=== PATIENT | male | born 1975 | race African-American/Black ===

== ENCOUNTER 2016-09-20 12:31 | Emergency (ER) | payer SELFPAY | END 2016-09-20 15:00 | disposition left against medical advice (07) | LOC: UCEAST 12:31 | DX: R21 Rash and other nonspecific skin eruption (principal) ==

== ENCOUNTER 2016-09-25 11:26 | Emergency (ER) | payer SELFPAY ==
[2016-09-25 13:48] VITALS: BP 148/95
--- NOTE | 2016-09-25 13:55 | UC ---
Headache HPI - HPI Summary HPI Summary: PT WITH H/O MIGRAINE TATUM WEEKLY SINCE CHILDHOOD. HAS BEEN TAKING EXCEDRIN REGULARLY SINCE THEN. FOR PAST 1 MONTH TATUM HAS NOT ABATED EVEN WITH EXCEDRIN. PT HAS A LOT OF STRESS AT HOME AND DOESN'T GET ENOUGH SLEEP OR DRINK ENOUGH WATER. TAKES EXCEDRIN MIGRAINE AT LEAST TWICE DAILY. NO FEVER, VISUAL DISTURBANCES, N/V , CHEST PAIN OR SOB. - History Of Current Complaint Chief Complaint: UCGeneralIllness Stated Complaint: HEADACHE Time Seen by Provider: 09/25/16 13:43 Hx Obtained From: Patient Onset/Duration: Gradual Onset, Lasting Weeks, Still Present Onset Of Symptoms: Gradual Currently Pain Is: Mild Pain Intensity: 2 Pain Scale Used: 0-10 Numeric Timing: Constant Character: Throbbing, Migraine Location of Headache: Diffuse Aggravating Factor: Position Change Allevating Factors: Nothing - Allergies/Home Medications Allergies/Adverse Reactions: Allergies Allergy/AdvReac Type Severity Reaction Status Date / Time Naproxen AdvReac Intermediate Vomiting Verified 07/15/16 21:06 PMH/Surg Hx/FS Hx/Imm Hx Endocrine History Of: Denies: Diabetes, Thyroid Disease Cardiovascular History Of: Denies: Cardiac Disorders, Hypertension Respiratory History Of: Denies: COPD, Asthma GI/ History Of: Denies: Ulcer Neurological History Of: Reports: Migraine - Surgical History Surgical History: None - Family History Known Family History: Positive: Cardiac Disease, Hypertension, Diabetes - Social History Alcohol Use: Occasionally Substance Use Type: Marijuana Smoking Status (MU): Former Smoker Type: Cigarettes Amount Used/How Often: quit 06/2014 Length of Time of Smoking/Using Tobacco: 20 years Have You Smoked in the Last Year: Yes Household Exposure Type: Cigarettes - Immunization History Most Recent Tetanus Shot: 2013 Review of Systems Constitutional: Negative Respiratory: Negative Cardiovascular: Negative Gastrointestinal: Negative Neurological: Headache All Other Systems Reviewed And Are Negative: Yes Physical Exam Triage Information Reviewed: Yes Appearance: Well-Appearing, No Pain Distress, Well-Nourished Vital Signs: Initial Vital Signs Temp 97.8 F 09/25/16 13:40 Pulse 58 09/25/16 13:40 Resp 18 09/25/16 13:40 BP 148/95 09/25/16 13:40 Pulse Ox 100 09/25/16 13:40 Vital Signs Reviewed: Yes Eyes: Positive: Conjunctiva Clear ENT: Positive: Hearing grossly normal, Pharynx normal, TMs normal Neck: Positive: Supple Respiratory Exam: Normal Cardiovascular Exam: Normal Abdomen Description: Positive: Soft Musculoskeletal: Positive: No Edema Neurological: Positive: Alert, Other: - CN II-XII GROSSLY INTACT BILATERALLY. NEG PRONATOR DRIFT. FINGER TO NOSE INTACT BILATERALLY. HEEL TO VALLES INTACT BILATERALLY. RAPID ALTERNATING MVMTS INTACT. 5/5 STRENGTH Psychological: Positive: Age Appropriate Behavior Skin: Negative: rashes Headache Course/Dx - Course Course Of Treatment: PT DECLINES CT SCAN TODAY. STOP EXCEDRIN. HYDRATE. GET ENOUGH REST. FOLLOW-UP NEURO. TO ER IF SX WORSEN - Differential Dx/Diagnosis Differential Diagnosis/HQI/PQRI: Migraine, Tension Headache, Other - MEDICATION OVERUSE HEADACHE Provider Diagnoses: HEADACHE Discharge - Discharge Plan Condition: Stable Disposition: HOME Patient Education Materials: Tension Headache (ED), General Headache (ED) Referrals: Angel Billings MD [Medical Doctor] - Additional Instructions: CONSIDER MEDICATION OVERUSE HEADACHE -Medication overuse headache (MOH) is a headache occurring on 15 or more days per month developing as a consequence of regular overuse of acute or symptomatic headache medication for more than 3 months. It usually, but not invariably, resolves after the overuse is stopped. -The precise mechanisms that lead to MOH are still uncertain. However, multiple factors seem to play a role. These include: Genetic predisposition Central sensitization of pain processing Biobehavioral factors -The prevalence of MOH in the general population is approximately 1 to 2 percent , and is higher in women than in men. Migraine is the most common primary headache disorder associated with MOH. -All acute symptomatic medications used to treat headaches have the potential for causing MOH. The risk for MOH appears to vary but is associated with: - opioids - butalbital-containing combination analgesics - aspirin/acetaminophen/caffeine combinations - triptans - nonsteroidal antiinflammatory drugs -The development of MOH is typically preceded by an episodic headache disorder, usually migraine or tension-type headache, that has been treated with frequent and excessive amounts of acute symptomatic medications. MOH often manifests as a headache that is present or develops upon awakening, and commonly occurs daily or nearly daily. -The diagnosis of MOH is based upon clinical impression. A history of analgesic use averaging more than two to three days per week in association with chronic daily headache is suggestive. STAY WELL HYDRATED. GET ENOUGH REST. TRY TO REDUCE STRESS. CALL THE NUMBER BELOW FOR ASSISTANCE IN ESTABLISHING WITH A PCP An additional resource available to assist in finding the appropriate physician for your health care needs is the [facility] ([facility]). You may contact them by calling [phone].
== END 2016-09-25 14:28 | disposition home or self-care (01) ==
LOC: UCEAST 11:26
DX: R51 Headache (principal); Z88.6 Allergy status to analgesic agent; Z87.891 Personal history of nicotine dependence
CPT/HCPCS: 99211; G0463

== ENCOUNTER 2017-01-26 18:00 | Emergency (ER) | payer SELFPAY ==
[2017-01-26 18:25] VITALS: BP 129/66
[2017-01-26] MEDS ORDERED: predniSONE TAB* 20 MG PO ONE (19:12)
[2017-01-26] MEDS ORDERED: Ketorolac INJ* 60 MG/2 ML VIAL IM ONE (19:12)
--- NOTE | 2017-01-27 13:17 | UC ---
Throat Pain/Nasal Rick HPI - HPI Summary HPI Summary: Patient is a 41yo who presents to with CC of sore throat x 2 days. Pain is sharp, achy and constant. He denies sick contacts or recent illness. Denies hx of strep throat. He is otherwise healthy and does not smoke tobacco, but smokes marijuana daily. He states intermittently he will have difficulty swallowing d/t pain and swelling. Cold items make the throat feel better. He has tried Motrin for the pain, which has not improved his symptoms. He takes no medications. - History of Current Complaint Chief Complaint: UCGeneralIllness Stated Complaint: SORE THROAT Time Seen by Provider: 01/26/17 18:07 Hx Obtained From: Patient Onset/Duration: Sudden Onset Severity: Moderate Pain Intensity: 6 Pain Scale Used: 0-10 Numeric Associated Signs & Symptoms: Positive: Dysphagia - Epiglottits Risk Factors Epiglottis Risk Factors: Negative - Allergies/Home Medications Allergies/Adverse Reactions: Allergies Allergy/AdvReac Type Severity Reaction Status Date / Time Naproxen AdvReac Intermediate Vomiting Verified 01/26/17 18:19 PMH/Surg Hx/FS Hx/Imm Hx Previously Healthy: Yes Endocrine History Of: Denies: Diabetes, Thyroid Disease Cardiovascular History Of: Denies: Cardiac Disorders, Hypertension Respiratory History Of: Denies: COPD, Asthma GI/ History Of: Denies: Ulcer Neurological History Of: Reports: Migraine - Surgical History Surgical History: None - Family History Known Family History: Positive: Cardiac Disease, Hypertension, Diabetes - Social History Occupation: Employed Full-time Lives: With Family Alcohol Use: Occasionally Substance Use Type: Marijuana Smoking Status (MU): Former Smoker Type: Cigarettes Amount Used/How Often: quit 06/2014 Length of Time of Smoking/Using Tobacco: 20 years Have You Smoked in the Last Year: Yes Household Exposure Type: Cigarettes - Immunization History Most Recent Tetanus Shot: 2013 Review of Systems Constitutional: Negative ENT: Sore Throat Respiratory: Negative Cardiovascular: Negative Genitourinary: Negative Neurovascular: Negative Neurological: Negative Psychological: Negative All Other Systems Reviewed And Are Negative: Yes Physical Exam Triage Information Reviewed: Yes Appearance: Well-Appearing, No Pain Distress, Well-Nourished Vital Signs: Initial Vital Signs Temp 98.7 F 01/26/17 18:22 Pulse 66 01/26/17 18:22 Resp 18 01/26/17 18:22 BP 129/66 01/26/17 18:22 Pulse Ox 96 01/26/17 18:22 Vital Signs Reviewed: Yes Eye Exam: Normal Eyes: Positive: Conjunctiva Clear ENT: Positive: Pharyngeal erythema Dental Exam: Normal Neck: Positive: Supple, Nontender, No Lymphadenopathy Respiratory Exam: Normal Respiratory: Positive: Chest non-tender Cardiovascular Exam: Normal Cardiovascular: Positive: RRR Musculoskeletal Exam: Normal Musculoskeletal: Positive: Strength Intact Neurological Exam: Normal Neurological: Positive: Alert Psychological: Positive: Normal Response To Family, Age Appropriate Behavior Skin Exam: Normal Throat Pain/Nasal Course/Dx - Course Course Of Treatment: Strep negative. Lung sounds are clear, otherwise physical exam OK. Uvula midline with no peritonsillar swelling. Pharyngeal erythema with no tonsillar swelling, no exudates. Hoarseness. Encouraged motrin for pain and to return if symptoms persist. Patient agrees and is OK for discharge. - Differential Dx/Diagnosis Differential Diagnosis/HQI/PQRI: Mononucleosis, Peritonsillar Abscess, Pharyngitis, URI Provider Diagnoses: Pharyngitis Discharge - Discharge Plan Condition: Stable Disposition: HOME Prescriptions: predniSONE TAB* [Deltasone TAB*] 50 mg PO DAILY #5 tab MDD 1 Patient Education Materials: Pharyngitis (ED) Forms: *Work Release Referrals: No Primary Care Phys,NOPCP [Primary Care Provider] - Additional Instructions: How can I manage my symptoms? Use lozenges, ice, soft foods, or popsicles to soothe your throat. Drink juice, milk shakes, or soup if your throat is too sore to eat solid food. Drinking liquids can also help prevent dehydration. Gargle with salt water. Mix teaspoon salt in a 1 cup of warm water and gargle. This may help reduce swelling in your throat. Do not smoke. Nicotine and other chemicals in cigarettes and cigars can cause lung damage and make your symptoms worse. Ask your healthcare provider for information if you currently smoke and need help to quit. E-cigarettes or smokeless tobacco still contain nicotine. Talk to your healthcare provider before you use these products. How do I prevent the spread of strep throat? Wash your hands often. Use soap and water. Wash your hands after you use the bathroom, change a child's diapers, or sneeze. Wash your hands before you prepare or eat food. Do not share food or drinks. Replace your toothbrush after you have taken antibiotics for 24 hours. Ibuprofen 600mg three times daily for inflammation Prednisone 50mg in the morning for 5 days. Benadryl at bedtime to help with inflammation and with swelling
== END 2017-01-26 19:02 | disposition home or self-care (01) ==
LOC: UCEAST 18:00
DX: J02.9 Acute pharyngitis, unspecified (principal); G43.909 Migraine, unspecified, not intractable, without status migrainosus; Z88.6 Allergy status to analgesic agent; Z87.891 Personal history of nicotine dependence
CPT/HCPCS: 87651; 96372; 99212; G0463; J1885; J7512

== ENCOUNTER 2017-03-11 20:47 | Emergency (ER) | payer SELFPAY ==
--- NOTE | 2017-03-11 21:52 | UC ---
General HPI - HPI Summary HPI Summary: The patient comes in today for: 1. Left leg pain, vomiting: Onset: One week ago. Palliative/provocative: Brace makes it better. Walking makes it hurt (lower femur) Quality: sharp Region: Lower left femur Severity: 02/22 Time: Constant. Associated symptoms: Leg pain/Event: He jumped out of a dumpster landing on his legs. He states that he had pain at that time and "couldn't walk." He did not see anyone for this. He treated it with Dione unknown dose two pills in AM and two pills in PM. He was taking ibuprofen at 200 mg/pill four times a day. He was taking this for a week. Vomiting: Onset: Last night Palliative/provocative: Sleep makes nausea better. Quality: Nausea. Region: GI Severity: 04/24 Time: Constant. Associated symptoms: Dizzy: "I feel out of body." Previous disease: He has taken Naproxen and had similar medication. Vomitin times. No blood, or coffee ground emesis. Last time he took the ibuprofen or aspirin. He has abdominal pain in the epigastric area, but he states that it does not radiate to his back. He has had problems with NSAIDS before where he had similar symptoms. During the history taking, he vomited non-bloody material. * - History of Current Complaint Chief Complaint: UCGI Stated Complaint: VOMITING Time Seen by Provider: 03/11/17 21:45 Hx Obtained From: Patient, Family/Malariologist - Allergy/Home Medications Allergies/Adverse Reactions: Allergies Allergy/AdvReac Type Severity Reaction Status Date / Time Naproxen AdvReac Intermediate Vomiting Verified 03/11/17 20:56 Home Medications: Home Medications diPHENhydraMINE PO* [Benadryl PO 25 MG TAB*] 25 mg PO BEDTIME 03/11/17 [History Confirmed 03/11/17] PMH/Surg Hx/FS Hx/Imm Hx Previously Healthy: Yes - Surgical History Surgical History: None - Family History Known Family History: Positive: Cardiac Disease, Hypertension, Diabetes - Social History Occupation: Employed Full-time Alcohol Use: Occasionally Substance Use Type: Marijuana Smoking Status (MU): Former Smoker Type: Cigarettes Amount Used/How Often: quit 06/2014 Length of Time of Smoking/Using Tobacco: 20 years Have You Smoked in the Last Year: Yes Household Exposure Type: Cigarettes - Immunization History Most Recent Tetanus Shot: 2013 Review of Systems Constitutional: Negative, Chills Skin: Negative Eyes: Negative ENT: Negative Respiratory: Negative Gastrointestinal: Vomiting All Other Systems Reviewed And Are Negative: Yes Physical Exam Triage Information Reviewed: Yes Completion Of Physical Exam Limited Due To: Other - When I was taking a history , he vomited clear to yellow fluid. NO blood or coffee ground emesis. Appearance: Well-Appearing, No Pain Distress, Well-Nourished Vital Signs: Initial Vital Signs Temp 100.6 F 03/11/17 20:52 Pulse 64 03/11/17 20:52 Resp 18 03/11/17 20:52 BP 138/83 03/11/17 20:52 Pulse Ox 100 03/11/17 20:52 Vital Signs Reviewed: Yes Eyes: Positive: Conjunctiva Clear. Negative: Discharge ENT: Positive: Hearing grossly normal. Negative: Pharyngeal erythema, Nasal congestion, Nasal drainage, TM bulging, TM dull, TM red, Tonsillar swelling, Tonsillar exudate Dental: Negative: Gross Decay/Caries @, Dental Fracture @ Neck: Positive: Supple, Nontender, No Lymphadenopathy Respiratory: Positive: Chest non-tender, Lungs clear, No respiratory distress, No accessory muscle use. Negative: Crackles, Wheezing Cardiovascular: Positive: RRR, Pulses Normal Abdomen Description: Positive: No Organomegaly, Soft. Negative: Nontender - There is tenderness, mostly in the epigastric area., Distended, Guarding, Peritoneal Signs Musculoskeletal: Positive: Strength Intact, ROM Intact, No Edema, Other: - He has no tenderness to palpation of the posterior capsule and the hamstring tendons. He has no effusion and he has full range of motion. There is no tenderness to traction deviation of the patella and none of the patella with tapping or of the tibial tuberosity. There is no tenderness to palpation of the anterior medial and lateral meniscus.. Negative: Strength Limited @ Neurological: Positive: Alert, Muscle Tone Normal Psychological: Positive: Age Appropriate Behavior. Negative: Consolable Skin: Negative: rashes, breakdown Diagnostics - Radiology No standard instances Xray Interpretation: No Acute Changes - IMPRESSION: Mild osteoarthritis without significant change. No traumatic injury evident. Radiology Interpretation Completed By: Radiologist Course/Dx - Course Course Of Treatment: Patient and female criminal defense attorney were told of the x-ray reading. After the GI cocktail, he states that he feels better (in terms of nausea and abdominal pain) and wants to go home. In terms of his abdominal pain : The patient was told that I don't know for sure what is causing his abdominal. pain. The patient was also told that there are many causes for abdomianl pain--. some which are benign and some which are life-threatening. Furthermore, it was. mentioned that the life-threatening causes of abdomianl pain can present with. minimal, atypical, or even no symptoms. Becasue of these facts and the fact. that we don't have here all the testing methods commonly used to assess abdominal. pain, and their timely resuts, my recommendation is for the patient to go to. the [facility] ([facility]) ER. He declines and will consider it if he does not do well with what we can offer him in terms of treatment. - Differential Dx - Multi-Symptom Provider Diagnoses: Viral vs NSAID gastroenteritis Discharge - Discharge Plan Condition: Stable Disposition: AGAINST MEDICAL ADVICE Patient Education Materials: Gastroenteritis (ED) Referrals: No Primary Care Phys,NOPCP [Primary Care Provider] - As Soon As Possible (If you are not going to the ER, please see your primary care provider as soon as you can to see how well you are doing. If you don't have a primary care provider, please contact the physician referral service. If you can't get in timely, please you may come back to see us until you can. If you get worse, please be seen sooner by us or the ER.) [facility] PHYSICIAN REFERRAL [Outside]
[2017-03-11] MEDS ORDERED: Ondansetron ODT TAB* 4 MG PO ONE (22:04)
[2017-03-11] MEDS ORDERED: Al Hydrox/Mg Hydrox/Simet LIQ* 30 ML UDC PO ONE (22:39)
[2017-03-11] MEDS ORDERED: Lidocaine 2% VISCOUS* 15 ML UDC PO ONE (22:39)
[2017-03-11] MEDS ORDERED: Ondansetron ODT TAB* 4 MG SL ONE (22:39)
--- NOTE | 2017-03-11 22:45 | RAD ---
Indication: Pain anterior just proximal to patella and distal femur following jumping injury. Comparison: January 04, 2015 Technique: LEFT knee: AP, tunnel, lateral, sunrise views. Report: Negative for effusion, fracture, or malalignment. Moderate medial and patellofemoral joint osteophytosis. No significant joint space narrowing which may be underestimated without weightbearing views. Unremarkable soft tissue contours. IMPRESSION: Mild osteoarthritis without significant change. No traumatic injury evident.
[2017-03-11] MEDS ORDERED: Famotidine TAB* 20 MG PO ONE (23:04)
[2017-03-11] MEDS ORDERED: Omeprazole CAP* 20 MG PO ONE (23:05)
[2017-03-11 23:29] VITALS: BP 148/86
== END 2017-03-11 23:20 | disposition left against medical advice (07) ==
LOC: UCEAST 20:47
DX: K52.9 Noninfective gastroenteritis and colitis, unspecified (principal); M79.662 Pain in left lower leg; Z87.891 Personal history of nicotine dependence
CPT/HCPCS: 99213; A9270-GY; G0463

== ENCOUNTER 2018-02-07 13:00 | Emergency (ER) | payer OTHER ==
[2018-02-07] MEDS ORDERED: NS 0.9% 1000 ML* 1,000 ML IV ONE ×2 (13:18→15:20)
[2018-02-07] MEDS ORDERED: Morphine VIAL* 4 MG/ML VIAL (1 ml vial) IV PRN (13:18)
[2018-02-07] MEDS ORDERED: Metoclopramide IV* 5 MG/ML 2 ML VIAL IV ONE (13:18)
[2018-02-07] MEDS ORDERED: Morphine VIAL* 4 MG/ML VIAL (1 ml vial) IV ONE ×2 (13:28→13:29)
[2018-02-07 13:44] LABS: Hematocrit 45 % (42-52); Mean Corpuscular HGB Conc 33 g/dl (31-36); Mean Corpuscular Hemoglobin 29 pg (27-31); Mean Corpuscular Volume 87 fL (80-94); Mean Platelet Volume 8.4 um3 (7.4-10.4); Platelet Count 243 10^3/ul (150-450); Red Blood Count 5.23 10^6/ul (4.0-5.4); Red Cell Distribution Width 14 % (10.5-15); White Blood Count 6.9 10^3/ul (3.5-10.8)
[2018-02-07 13:51] LABS: INR 1.05 (0.77-1.02)
[2018-02-07 14:13] LABS: ABS Basophils 0.1 10^3/ul (0-0.2); ABS Eosinophils 0 10^3/ul (0-0.6); ABS Lymphocytes 1.1 10^3/ul (1.0-4.8); ABS Monocytes 0.3 10^3/ul (0-0.8); ABS Neutrophils 5.3 10^3/ul (1.5-7.7); ABS Nucleated RBC 0 10^3/ul; Eosinophil % 0.4 % (0-6); Lymphocyte % 16.4 % (25-47); Nucleated Red Blood Cells % 0.2
[2018-02-07] MEDS ORDERED: Iohexol 300* (CONTRAST) 10 ML SDV IV ONE (16:36)
--- NOTE | 2018-02-07 17:20 | RAD ---
CLINICAL HISTORY: Diverticulitis, left lower quadrant tenderness COMPARISON: None TECHNIQUE: Multiple contiguous axial CT scans were obtained of the abdomen and pelvis after the administration of intravenous contrast. Coronal and sagittal multiplanar reformations are submitted for review. Oral contrast was administered. Delayed images were obtained through the abdomen. FINDINGS: LUNG BASES: The lung bases are clear. LIVER: The liver is normal in shape, size, contour, and attenuation. BILE DUCTS: There is no intrahepatic or extrahepatic biliary dilatation. GALLBLADDER: The gallbladder is normal, without pericholecystic inflammatory change. PANCREAS: The pancreas is normal, without mass or ductal dilatation. SPLEEN: Normal in size and appearance. UPPER GI TRACT: Evaluation of the gastrointestinal tract is limited by incomplete gastric distention. The upper GI tract is unremarkable. SMALL BOWEL AND MESENTERY: The small bowel is normal in contour, course, and caliber. There is no obstruction or dilatation. COLON: The colon is normal in contour, course, caliber. There is no pericolonic inflammatory change. There is a tubular, vermiform, hollow viscus that is blind ending, and originates from the cecum, consistent with a normal appendix. There is no periappendiceal inflammatory change. ADRENALS: Normal bilaterally. KIDNEYS: The kidneys are normal in shape, size, contour, and axis. There is no hydronephrosis or nephrolithiasis. BLADDER: The bladder is incompletely distended but is grossly normal. PELVIC ORGANS: The prostate gland is normal. The seminal vesicles are symmetric. AORTA: The aorta is normal. IVC: Unremarkable LYMPH NODES: There is no lymphadenopathy by size criteria. ABDOMINAL WALL: There is no evidence for abdominal wall hernia. BONES AND SOFT TISSUES: Degenerative changes are noted at L5-S1 OTHER: None IMPRESSION: NO ACUTE CT PATHOLOGY OF THE VISUALIZED ABDOMEN OR PELVIS
--- NOTE | 2018-02-07 17:56 | ED ---
Douglas Najera Stephanie, scribed for Kamari Anderson on 02/07/18 at 1323 . Abdominal Pain/Male - HPI Summary HPI Summary: The pt is a 42 y/o M presenting to the ED with c/o abd pain that began on . The pt reports having a colonoscopy done on 02/04/18 and hemorrhoids banded. Symptoms include N/V since 02/05/18 which has worsened today. The pt has been taking Tylenol for his pain. - History of Current Complaint Chief Complaint: EDAbdPain Stated Complaint: VOMIITING Time Seen by Provider: 02/07/18 13:14 Hx Obtained From: Patient Onset/Duration: Sudden Onset, Lasting Days - 3, Still Present Timing: Constant Severity Currently: Severe Pain Intensity: 6 Pain Scale Used: 0-10 Numeric Location: Diffuse Radiates: No Aggravating Factor(s): Nothing Alleviating Factor(s): Nothing Associated Signs And Symptoms: Positive: Nausea, Vomiting - Allergies/Home Medications Allergies/Adverse Reactions: Allergies Allergy/AdvReac Type Severity Reaction Status Date / Time naproxen Allergy Vomiting Verified 02/07/18 13:02 Home Medications: Home Medications Acetaminophen [Tylenol Extra Strength] 500 mg PO Q4H PRN 02/07/18 [History Confirmed 02/07/18] PMH/Surg Hx/FS Hx/Imm Hx Endocrine/Hematology History: Denies: Hx Diabetes, Hx Thyroid Disease Cardiovascular History: Denies: Hx Hypertension Respiratory History: Denies: Hx Asthma, Hx Chronic Obstructive Pulmonary Disease (COPD) GI History: Denies: Hx Ulcer Musculoskeletal History: Denies: Hx Scoliosis Neurological History: Reports: Hx Migraine - Surgical History Surgery Procedure, Year, and Place: hemorrhoids banded- 02/04/2018 Infectious Disease History: No Infectious Disease History: Denies: Hx Clostridium Difficile, Hx Hepatitis, Hx Human Immunodeficiency Virus (HIV), Hx of Known/Suspected MRSA, Hx Shingles, Hx Tuberculosis, Hx Known/ Suspected VRE, Hx Known/Suspected VRSA, History Other Infectious Disease, Traveled Outside the [place] in Last 30 Days - Family History Known Family History: Positive: Cardiac Disease, Hypertension, Diabetes - Social History Occupation: Unemployed Lives: Alone Alcohol Use: Occasionally Hx Substance Use: Yes Substance Use Type: Reports: Marijuana Hx Tobacco Use: Yes Smoking Status (MU): Former Smoker Type: Cigarettes Amount Used/How Often: quit 06/2014 Length of Time of Smoking/Using Tobacco: 20 years Have You Smoked in the Last Year: Yes Review of Systems Negative: Fever Positive: Abdominal Pain, Vomiting, Nausea Negative: Slurred Speech All Other Systems Reviewed And Are Negative: Yes Physical Exam - Summary Physical Exam Summary: Appearance: Well appearing, no pain distress Skin: warm, dry, reflects adequate perfusion Head/face: normal Eyes: EOMI, RAINA ENT: normal Neck: supple, non-tender Respiratory: CTA, breath sounds present Cardiovascular: RRR, pulses symmetrical Abdomen: tenderness in R and L lower quadrants , soft Bowel: present Musculoskeletal: normal, strength/ROM intact Neuro: normal, sensory motor intact, A&Ox3 Triage Information Reviewed: Yes Vital Signs On Initial Exam: Initial Vitals Temp Pulse Resp BP Pulse Ox 99.0 F 78 24 150/91 100 02/07/18 13:02 02/07/18 13:02 02/07/18 13:02 02/07/18 13:02 02/07/18 13:02 Vital Signs Reviewed: Yes Diagnostics - Vital Signs Vital Signs Temp Pulse Resp BP Pulse Ox 02/07/18 13:11 10 02/07/18 13:02 99.0 F 78 24 150/91 100 - Laboratory Lab Results: Lab Results 02/07/18 02/07/18 02/07/18 Range/Units 13:34 13:34 13:35 WBC 6.9 (3.5-10.8) 10^3/ul RBC 5.23 (4.0-5.4) 10^6/ul Hgb 15.0 (14.0-18.0) g/dl Hct 45 (42-52) % MCV 87 (80-94) fL MCH 29 (27-31) pg MCHC 33 (31-36) g/dl RDW 14 (10.5-15) % Plt Count 243 (150-450) 10^3/ul MPV 8.4 (7.4-10.4) um3 Neut % (Auto) 76.7 (38-83) % Lymph % (Auto) 16.4 L (25-47) % Ector % (Auto) 5.0 (0-7) % Eos % (Auto) 0.4 (0-6) % Baso % (Auto) 1.5 (0-2) % Absolute Neuts (auto) 5.3 (1.5-7.7) 10^3/ul Absolute Lymphs (auto) 1.1 (1.0-4.8) 10^3/ul Absolute Monos (auto) 0.3 (0-0.8) 10^3/ul Absolute Eos (auto) 0 (0-0.6) 10^3/ul Absolute Basos (auto) 0.1 (0-0.2) 10^3/ul Absolute Nucleated RBC 0 10^3/ul Nucleated RBC % 0.2 Large Platelets Present INR (Anticoag Therapy) 1.05 H (0.77-1.02) APTT 27.3 (26.0-36.3) seconds Sodium 137 L (139-145) mmol/L Potassium 3.8 (3.5-5.0) mmol/L Chloride 106 (101-111) mmol/L Carbon Dioxide 19 L (22-32) mmol/L Anion Gap 12 H (2-11) mmol/L BUN 11 (6-24) mg/dL Creatinine 0.82 (0.67-1.17) mg/dL Est GFR ( Amer) 132.5 (>60) Est GFR (Non-Af Amer) 103.0 (>60) BUN/Creatinine Ratio 13.4 (8-20) Glucose 105 H (70-100) mg/dL Lactic Acid (0.5-2.0) mmol/L Calcium 9.9 (8.6-10.3) mg/dL Total Bilirubin 0.90 (0.2-1.0) mg/dL AST 30 (13-39) U/L ALT 23 (7-52) U/L Alkaline Phosphatase 58 (34-104) U/L Troponin I 0.00 (<0.04) ng/mL Total Protein 7.7 (6.4-8.9) g/dL Albumin 4.6 (3.2-5.2) g/dL Globulin 3.1 (2-4) g/dL Albumin/Globulin Ratio 1.5 (1-3) Lipase 27 (11.0-82.0) U/L // Range/Units 13:35 WBC (3.5-10.8) 10^3/ul RBC (4.0-5.4) 10^6/ul Hgb (14.0-18.0) g/dl Hct (42-52) % MCV (80-94) fL MCH (27-31) pg MCHC (31-36) g/dl RDW (10.5-15) % Plt Count (150-450) 10^3/ul MPV (7.4-10.4) um3 Neut % (Auto) (38-83) % Lymph % (Auto) (25-47) % Ector % (Auto) (0-7) % Eos % (Auto) (0-6) % Baso % (Auto) (0-2) % Absolute Neuts (auto) (1.5-7.7) 10^3/ul Absolute Lymphs (auto) (1.0-4.8) 10^3/ul Absolute Monos (auto) (0-0.8) 10^3/ul Absolute Eos (auto) (0-0.6) 10^3/ul Absolute Basos (auto) (0-0.2) 10^3/ul Absolute Nucleated RBC 10^3/ul Nucleated RBC % Large Platelets INR (Anticoag Therapy) (0.77-1.02) APTT (26.0-36.3) seconds Sodium (139-145) mmol/L Potassium (3.5-5.0) mmol/L Chloride (101-111) mmol/L Carbon Dioxide (22-32) mmol/L Anion Gap (2-11) mmol/L BUN (6-24) mg/dL Creatinine (0.67-1.17) mg/dL Est GFR ( Amer) (>60) Est GFR (Non-Af Amer) (>60) BUN/Creatinine Ratio (8-20) Glucose (70-100) mg/dL Lactic Acid 2.5 H* (0.5-2.0) mmol/L Calcium (8.6-10.3) mg/dL Total Bilirubin (0.2-1.0) mg/dL AST (13-39) U/L ALT (7-52) U/L Alkaline Phosphatase (34-104) U/L Troponin I (<0.04) ng/mL Total Protein (6.4-8.9) g/dL Albumin (3.2-5.2) g/dL Globulin (2-4) g/dL Albumin/Globulin Ratio (1-3) Lipase (11.0-82.0) U/L Result Diagrams: 02/07/18 13:35 02/07/18 13:34 Lab Statement: Any lab studies that have been ordered have been reviewed, and results considered in the medical decision making process. - CT Abdomen/Pelvis CT Interpretation: No Acute Changes CT Interpretation Completed By: Radiologist - NO ACUTE CT PATHOLOGY OF THE VISUALIZED ABDOMEN OR PELVIS. ED physician has reviewed this report. Abdominal Pain Fem Course/Dx - Course Course Of Treatment: The pt is a 42 y/o M presenting to the ED with c/o abd pain that began on 02/05/18. The pt reports having a colonoscopy done on 02/04/18 and hemorrhoids banded. - Diagnoses Differential Diagnosis/HQI/PQRI: Constipation, Diverticulitis, Pancreatitis, Renal Colic Provider Diagnoses: Abdominal pain, Status post hemorrhoidectomy, Hemorrhoids Discharge - Sign-Out/Discharge Documenting (check all that apply): Discharge/Admit/Transfer - Discharge - Discharge Plan Condition: Stable Disposition: HOME Prescriptions: Ibuprofen TAB* [Motrin TAB* 600 MG] 600 mg PO Q8H PRN #15 tab MDD 3 PRN Reason: Pain Ondansetron [Zofran Odt] 4 mg PO 15 #3 tab.rapdis Patient Education Materials: Hemorrhoids (ED), Abdominal Pain (ED), Hemorrhoidectomy (DC) Referrals: [facility] [Outside] Additional Instructions: Return to the ED for any new or worsening symptoms. - Billing Disposition and Condition Condition: STABLE Disposition: HOME The documentation as recorded by the Douglas cardenas Stephanie accurately reflects the service I personally performed and the decisions made by Justin rodriguez Emmanuel.
[2018-02-07 17:57] VITALS: BP 136/86
== END 2018-02-07 17:57 | disposition home or self-care (01) ==
LOC: ED 13:00
DX: R10.9 Unspecified abdominal pain (principal); K64.9 Unspecified hemorrhoids; Z98.890 Other specified postprocedural states; Z87.891 Personal history of nicotine dependence; Z88.6 Allergy status to analgesic agent
CPT/HCPCS: 36415; 74177; 80053; 83605; 83690; 84484; 85025; 85610; 85730; 96374; 96375; 99282; J2270; J2765; Q9967

== ENCOUNTER 2018-06-18 19:51 | Emergency (ER) | payer OTHER ==
[2018-06-18 20:09] VITALS: BP 135/96
--- NOTE | 2018-06-18 20:12 | UC ---
Knee Pain HPI - HPI Summary HPI Summary: 42 yo male presents with right knee pain. He tells me that around 1400 today he opened his 's care door and impacted his right knee. He has had pain since and has felt some crunching when he is walking - is concerned it may be broken. He has taken tylenol for pain which has helped. He is ambulatory without assistance. Denies numbness or tingling. - History of Current Complaint Chief Complaint: UCLowerExtremity Stated Complaint: KNEE INJURY Time Seen by Provider: 06/18/18 20:11 Hx Obtained From: Patient Severity Initially: Mild Severity Currently: Mild Pain Intensity: 4 Pain Scale Used: 0-10 Numeric - Allergies/Home Medications Allergies/Adverse Reactions: Allergies Allergy/AdvReac Type Severity Reaction Status Date / Time naproxen AdvReac Vomiting Verified 06/18/18 20:09 PMH/Surg Hx/FS Hx/Imm Hx - Additional Past Medical History Additional PMH: None - Surgical History Surgical History: Yes Surgery Procedure, Year, and Place: hemorrhoids banded- 02/04/2018 - Family History Known Family History: Positive: Cardiac Disease, Hypertension, Diabetes - Social History Occupation: Employed Full-time Lives: With Family Alcohol Use: Occasionally Substance Use Type: Marijuana Smoking Status (MU): Former Smoker Type: Cigarettes Amount Used/How Often: quit 06/2014 Length of Time of Smoking/Using Tobacco: 20 years Have You Smoked in the Last Year: Yes Household Exposure Type: Cigarettes - Immunization History Most Recent Tetanus Shot: 2013 Review of Systems Constitutional: Negative Skin: Negative Respiratory: Negative Cardiovascular: Negative Neurovascular: Negative Musculoskeletal: Other: - Right knee pain Neurological: Negative Psychological: Negative All Other Systems Reviewed And Are Negative: Yes Physical Exam - Summary Physical Exam Summary: GENERAL: NAD. WDWN. No pain distress. SKIN: No rashes, sores, lesions, or open wounds. CHEST: No accessory muscle use. Breathing comfortably and in no distress. CV: . Pulses intact popliteal, PT, and DP. Cap refill <2seconds MSK: RIGHT KNEE: Mild edema. Mild ecchymosis at superior patella. FROM active, pain worse with flexion. Strength 5/5. No patella apprehension. Negative Meera , A/P drawer, Shon, and varus/valgus stress. NEURO: Alert. Sensations intact and symmetric B/L LEs PSYCH: Age appropriate behavior. Triage Information Reviewed: Yes Vital Signs: Initial Vital Signs Temp 98 F 06/18/18 20:06 Pulse 68 06/18/18 20:06 Resp 16 06/18/18 20:06 BP 135/96 06/18/18 20:06 Pulse Ox 100 06/18/18 20:06 Vital Signs Reviewed: Yes Knee Pain Course/Dx - Course Course Of Treatment: XR: No radiologist reading after 1800, therefore wet read by myself is negative for fracture. Pt was offered crutches and GLENN wrap, but declined. Advised to RICE and take ibuprofen. F/u if symptoms worsen or persist. - Differential Dx/Diagnosis Provider Diagnoses: Right knee contusion Discharge - Sign-Out/Discharge Documenting (check all that apply): Patient Departure All imaging exams completed and their final reports reviewed: No - Discharge Plan Condition: Stable Disposition: HOME Patient Education Materials: Knee Pain (ED) Referrals: No Primary Care Phys,NOPCP [Primary Care Provider] - Additional Instructions: If you develop a fever, shortness of breath, chest pain, new or worsening symptoms - please call your PCP or go to the ED. Your blood pressure was high at todays visit. Please see your primary provider within 4 weeks for recheck and re-evaluation. 1) Rest, Ice, and elevate your knee as much as possible 2) May take ibuprofen 600mg every 6 hours as needed for pain 3) If your symptoms worsen or do not improve - please be rechecked - Billing Disposition and Condition Condition: STABLE Disposition: Home
--- NOTE | 2018-06-19 07:50 | RAD ---
HISTORY: Pain, right knee injury COMPARISONS: None VIEWS: 4 , Frontal, lateral, axial, and oblique views of the right knee FINDINGS: BONE DENSITY: Normal. BONES: There is no displaced fracture. JOINTS: There is mild tricompartment osteophyte formation. There is no suprapatellar joint effusion or lipohemarthrosis. ALIGNMENT: There is no dislocation. SOFT TISSUES: Unremarkable. OTHER FINDINGS: None. IMPRESSION: NO ACUTE OSSEOUS INJURY. IF SYMPTOMS PERSIST, RECOMMEND REPEAT IMAGING. R0
--- NOTE | 2018-06-19 08:33 | UC ---
- Progress Note Progress Note: Patient Name: JODI ZHU Medical Record#: [id number] Ordering Physician: Troy HARRELL Acct.#: [id number] : 1975 Age: 42 Sex: M Location: [facility] Exam Date: 06/18/182010 ADM Status: DEP ER Order Information: KNEE RIGHT 4+ VWS Accession Number: [id number] CPT: 95224 HISTORY: Pain, right knee injury COMPARISONS: None VIEWS: 4 , Frontal, lateral, axial, and oblique views of the right knee FINDINGS: BONE DENSITY: Normal. BONES: There is no displaced fracture. JOINTS: There is mild tricompartment osteophyte formation. There is no suprapatellar joint effusion or lipohemarthrosis. ALIGNMENT: There is no dislocation. SOFT TISSUES: Unremarkable. OTHER FINDINGS: None. IMPRESSION: NO ACUTE OSSEOUS INJURY. IF SYMPTOMS PERSIST, RECOMMEND REPEAT IMAGING. R0 <Electronically signed by Evan Russell MD in OV> 06/19/18746 Dictated By: Evan Russell MD Dictated Date/Time: 06/19/18746 Transcribed Date/Time: 06/19/18745 Copy to: CC:No Primary Care Phys,NOPCP ; Troy HARRELL; Jodi Gasca MD Imaging - [facility] Imaging - [facility] [address] [address] ph [phone] ph ([phone]) ph ([phone]) This report is only to be considered final once signed by the Provider(s) as displayed in the "<Electronically Signed by >" field (s). Absence of a signature indicates the report is in a draft status and still needs to be finalized. In the event this document was created by someone other than the signing Provider, the individual initiating the document will be listed in the "Entered by:" or "Dictated by:" fletcher. 1 of 1 Discharge - Sign-Out/Discharge Documenting (check all that apply): Post-Discharge Follow Up All imaging exams completed and their final reports reviewed: Yes - Discharge Plan Condition: Stable Disposition: HOME Patient Education Materials: Knee Pain (ED) Referrals: No Primary Care Phys,NOPCP [Primary Care Provider] - Additional Instructions: If you develop a fever, shortness of breath, chest pain, new or worsening symptoms - please call your PCP or go to the ED. Your blood pressure was high at todays visit. Please see your primary provider within 4 weeks for recheck and re-evaluation. 1) Rest, Ice, and elevate your knee as much as possible 2) May take ibuprofen 600mg every 6 hours as needed for pain 3) If your symptoms worsen or do not improve - please be rechecked - Billing Disposition and Condition Condition: STABLE Disposition: Home
== END 2018-06-18 21:02 | disposition home or self-care (01) ==
LOC: UCEAST 19:51
DX: S80.01XA Contusion of right knee, initial encounter (principal); Z88.6 Allergy status to analgesic agent; Z87.891 Personal history of nicotine dependence; W23.0XXA Caught, crushed, jammed, or pinched between moving objects, initial encounter; Y92.9 Unspecified place or not applicable
CPT/HCPCS: 99211; G0463

== ENCOUNTER 2018-08-31 10:57 | Emergency (ER) | payer OTHER ==
[2018-08-31 11:16] VITALS: BP 159/87
--- NOTE | 2018-08-31 11:43 | UC ---
Back Pain HPI - HPI Summary HPI Summary: 43-year-old male presents with one-week history of lower back pain. Denies injury. States pain is located in the left lumbar back. Radiates into the left buttocks and a half. States pain worsens with sitting, standing, weightbearing, and ambulation. States has had some occasional tingling in the left buttocks. Denies fever, chills, abdominal pain, nausea, vomiting, dysuria , frequency, urgency, hematuria, loss of bowel or bladder control. - History of Current Complaint Chief Complaint: UCBackPain Stated Complaint: LOWER BACK PAIN Time Seen by Provider: 08/31/18 11:33 Hx Obtained From: Patient Pain Intensity: 9 - Allergies/Home Medications Allergies/Adverse Reactions: Allergies Allergy/AdvReac Type Severity Reaction Status Date / Time naproxen AdvReac Vomiting Verified 08/31/18 11:14 PMH/Surg Hx/FS Hx/Imm Hx Previously Healthy: Yes - Denies significant PMH - Surgical History Surgical History: Yes Surgery Procedure, Year, and Place: hemorrhoids banded- 02/04/2018 - Family History Known Family History: Positive: Cardiac Disease, Hypertension, Diabetes - Social History Occupation: Employed Full-time Lives: With Family Alcohol Use: Occasionally Substance Use Type: Marijuana Substance Use Comment - Amount & Last Used: daily Smoking Status (MU): Former Smoker Type: Cigarettes Amount Used/How Often: quit 06/2014 Length of Time of Smoking/Using Tobacco: 20 years Have You Smoked in the Last Year: Yes Household Exposure Type: Cigarettes - Immunization History Most Recent Tetanus Shot: 2013 Review of Systems All Other Systems Reviewed And Are Negative: Yes Constitutional: Negative: Fever, Chills Gastrointestinal: Negative: Abdominal Pain, Vomiting, Diarrhea, Nausea Genitourinary: Negative: Dysuria, Hematuria, Frequency, Urgency Motor: Negative: Decreased ROM Neurovascular: Negative: Decreased Sensation Musculoskeletal: Positive: Other: - See HPI Neurological: Negative: Weakness, Paresthesia, Numbness Is Patient Immunocompromised?: No Physical Exam - Summary Physical Exam Summary: GENERAL APPEARANCE: Well developed, well nourished, alert and cooperative, and appears to be in no acute distress. NECK: Neck supple. CARDIAC: Normal S1 and S2. No S3, S4 or murmurs. Rhythm is regular. There is no peripheral edema, cyanosis or pallor. Extremities are warm and well perfused. Capillary refill is less than 2 seconds. LUNGS: Clear to auscultation and percussion without rales, rhonchi, wheezing or diminished breath sounds. ABDOMEN: Positive bowel sounds. Soft, nondistended, nontender. No guarding or rebound. No masses or hepatosplenomegally. MUSKULOSKELETAL: ROM intact to all extremities. No joint erythema or tenderness. Normal muscular development. Normal gait. BACK: Examination of the spine reveals normal gait and posture, no spinal deformity or tenderness. There is some soft tissue tenderness with palpation to the left lumbar back without spasm. EXTREMITIES: No edema. Peripheral pulses intact. NEUROLOGICAL: Strength and sensation symmetric and intact throughout. SKIN: Skin normal color, texture and turgor with no lesions or eruptions. Triage Information Reviewed: Yes Vital Signs: Initial Vital Signs Temp 97.8 F 08/31/18 11:12 Pulse 71 08/31/18 11:12 Resp 19 08/31/18 11:12 BP 159/87 08/31/18 11:12 Pulse Ox 99 08/31/18 11:12 Vital Signs Reviewed: Yes Back Pain Course/Dx - Course Course Of Treatment: 43-year-old male presents with one-week history of lower back pain. Denies injury. States pain is located in the left lumbar back. Radiates into the left buttocks and a half. States pain worsens with sitting, standing, weightbearing, and ambulation. States has had some occasional tingling in the left buttocks. Denies fever, chills, abdominal pain, nausea, vomiting, dysuria, frequency, urgency, hematuria, loss of bowel or bladder control. Afebrile. VSS. Exam revealed some left lumbar soft tissue tenderness but was otherwise unremarkable. Recommend conservative treatment with NSAIDs, muscle relaxant, low back exercises, and referral to PT. Warning symptoms were reviwed with patient. Verbalizes understanding and agrees with POC. - Differential Dx/Diagnosis Differential Diagnosis/HQI/PQRI: Cauda Equina Syndrome, Herniated Disc, Strain Provider Diagnosis: Acute low back pain, Elevated blood pressure reading Discharge - Sign-Out/Discharge Documenting (check all that apply): Patient Departure All imaging exams completed and their final reports reviewed: No Studies - Discharge Plan Condition: Stable Disposition: HOME Prescriptions: Cyclobenzaprine TAB* [Flexeril 10 MG TAB*] 10 mg PO TID PRN #15 tab PRN Reason: Spasms - Back Ibuprofen 600 mg PO Q8HR #30 tablet Patient Education Materials: Acute Low Back Pain (ED), Lower Back Exercises (ED ) Forms: *Work Release Referrals: Becka Parsons NP [Primary Care Provider] - 7 Days (If no improvement in symptoms.) Additional Instructions: Your history and exam are consistent for musculoskeletal low back pain. Start taking ibuprofen 600 mg 1 tab every 8 hours with food for next 7 days. After 7 days, you may take every 8 hours as needed for pain. Take cyclobenzaprine (Flexeril) 1 tab every 8 hours as needed for severe pain or spasm. This medication will cause drowsiness so do not take and drive or operate machinery. Use warm moist heat for 15-20 minutes at least four times a day to help relax the muscles. Once your pain begins to improve, start slowly introducing the back exercises that were provided to you as tolerated. I have also given you a prescription for physical therapy as some studies have shown that early physical therapy can help improve recovery time for low back pain. You will need to call to arrange an appointment. Follow up with your primary care provider in 7 days if symptoms do not improve. Your blood pressure was elevated in the clinic today. It is recommended that you have this rechecked within 4 weeks by your primary care provider. Seek immediate medical attention in the emergency room if you develop fever greater than 100.5 F, have severe abdominal pain, persistent vomiting, develop weakness, numbness, tingling in your lower extremities, you lose control of bowel or bladder, or have any worsening of symptoms. - Billing Disposition and Condition Condition: STABLE Disposition: Home
== END 2018-08-31 12:07 | disposition home or self-care (01) ==
LOC: UCCORT 10:57
DX: M54.5 Low back pain (principal); R03.0 Elevated blood-pressure reading, without diagnosis of hypertension; Z88.8 Allergy status to other drugs, medicaments and biological substances; Z87.891 Personal history of nicotine dependence
CPT/HCPCS: 99212; G0463

== ENCOUNTER 2018-09-18 08:08 | Emergency (ER) | payer OTHER ==
[2018-09-18 08:33] VITALS: BP 132/94
--- NOTE | 2018-09-18 09:02 | UC ---
Knee Pain HPI - HPI Summary HPI Summary: left knee pain x 1 day s/p injury to left knee, s/p twisted his left knee and fell on the his knee, hip the steps, + pain and swelling of the left knee, increase pain with walking, standing , better with rest and ice, - History of Current Complaint Chief Complaint: UCLowerExtremity Stated Complaint: LEFT LEG INJURY Time Seen by Provider: 09/18/18 08:34 Hx Obtained From: Patient Onset/Duration: Sudden Onset, Lasting Days - 1, Still Present Severity Initially: Moderate Severity Currently: Moderate Pain Intensity: 10 Character: Dull, Aching Aggravating Factor(s): Movement, Weight Bearing, Prolonged Standing, Stairs Alleviating Factor(s): Rest, Cold Associated Signs And Symptoms: Positive: Swelling, Weakness. Negative: Redness , Bruising, Fever, Numbness, Tingling Able to Bear Weight: Yes - Allergies/Home Medications Allergies/Adverse Reactions: Allergies Allergy/AdvReac Type Severity Reaction Status Date / Time naproxen AdvReac Vomiting Verified 09/18/18 08:21 Home Medications: Home Medications Ibuprofen 1,200 mg PO Q8HR PRN 09/18/18 [History] PMH/Surg Hx/FS Hx/Imm Hx Previously Healthy: Yes - Surgical History Surgical History: Yes Surgery Procedure, Year, and Place: hemorrhoids banded- 02/04/2018 - Family History Known Family History: Positive: Cardiac Disease, Hypertension, Diabetes - Social History Alcohol Use: Occasionally Substance Use Type: Marijuana Substance Use Comment - Amount & Last Used: daily Smoking Status (MU): Former Smoker Type: Cigarettes Amount Used/How Often: quit 06/2014 Length of Time of Smoking/Using Tobacco: 20 years Have You Smoked in the Last Year: Yes Household Exposure Type: Cigarettes - Immunization History Most Recent Tetanus Shot: 2013 Review of Systems All Other Systems Reviewed And Are Negative: Yes Constitutional: Positive: Negative Skin: Positive: Negative Eyes: Positive: Negative ENT: Positive: Negative Is Patient Immunocompromised?: No Physical Exam Triage Information Reviewed: Yes Appearance: Well-Appearing, No Pain Distress, Well-Nourished Vital Signs: Initial Vital Signs Temp 97.3 F 09/18/18 08:23 Pulse 62 09/18/18 08:23 Resp 16 09/18/18 08:23 BP 132/94 09/18/18 08:23 Pulse Ox 100 09/18/18 08:23 Vital Signs Reviewed: Yes Eye Exam: Normal Eyes: Positive: Conjunctiva Clear ENT: Positive: Normal ENT inspection, Hearing grossly normal, Pharynx normal Neck: Positive: Supple, Nontender Respiratory: Positive: Chest non-tender, Lungs clear, Normal breath sounds Cardiovascular: Positive: RRR, No Murmur, Pulses Normal Musculoskeletal: Positive: Other: - left knee : + swelling, + mild effusion , + tenderness medial knee, decrease ROM on flexion and extension , Diagnostics - Laboratory Diagnostic Studies Completed/Ordered: xray left knee : IMPRESSION: #. Negative for fracture. #. Small joint effusion. #. Mild to moderate osteoarthritis. Knee Pain Course/Dx - Differential Dx/Diagnosis Provider Diagnosis: Effusion, left knee Discharge - Sign-Out/Discharge Documenting (check all that apply): Patient Departure All imaging exams completed and their final reports reviewed: Yes - Discharge Plan Condition: Stable Disposition: HOME Patient Education Materials: Swollen Knee Joint (ED) Referrals: Becka Parsons NP [Primary Care Provider] - Andrea Olsen MD [Medical Doctor] - As Soon As Possible - Billing Disposition and Condition Condition: STABLE Disposition: Home
== END 2018-09-18 09:26 | disposition home or self-care (01) ==
LOC: UCCORT 08:08
DX: M25.462 Effusion, left knee (principal); Z87.891 Personal history of nicotine dependence
CPT/HCPCS: 99211; G0463

== ENCOUNTER 2019-06-28 12:26 | Emergency (ER) | payer OTHER ==
--- OUTSIDE RECORDS SUMMARY | 2019-06-28 12:41 | XMS REPORT | Continuity of Care Document ---
:1975 External Reference #:[id number] Author Name Peggy Flanagan MD Address [address] [place] [id number] Problems Active Problems Provider Date Arthralgia of the lower leg Kaden Tierney M.D. Onset: 01/09/2015 Arthralgia of the ankle and/or foot Kaden Tierney M.D. Onset: 01/09/2015 Closed fracture of upper end of fibula Kaden Tierney M.D. Onset: 2014 Sprain of ankle Kaden Tierney M.D. Onset: 01/09/2015 Social History Type Date Description Comments Sex Unknown ETOH Use Occasionally consumes alcohol Tobacco Use Start: Unknown Patient has never smoked Recreational Drug Use sporadically uses herbal supplements Smoking Status Reviewed: 06/01/19 Patient has never smoked Exercise Type/Frequency Exercises rarely Allergies, Adverse Reactions, Alerts Active Allergies Reaction Severity Comments Date Naproxen 01/09/2015 Inactive Allergies NKDA 01/09/2015 Medications Active Medications SIG Qnty Indications Ordering Provider Date Ibuprofen as needed Unknown 200mg Capsules Medications Administered in Office Medication SIG Qnty Indications Ordering Provider Date Celestone 3 mg and 3mg Andrea Olsen MD 09/18/2018 Injection Immunizations Description No Information Available Vital Signs Date Vital Result Comment 09/18/2018 10:06am Height 72 inches 6'0" Weight 205.00 lb BP Systolic Sitting 132 mmHg BP Diastolic Sitting 72 mmHg Respiratory Rate 16 /min Pain Level 9 when standing BMI (Body Mass Index) 27.8 kg/m2 01/09/2015 2:00pm Height 72 inches 6'0" Weight 200.00 lb Heart Rate 62 /min BP Systolic 136 mmHg BP Diastolic 82 mmHg Pain Level 6 BMI (Body Mass Index) 27.1 kg/m2 Results Description No Information Available Procedures Description No Information Available Medical Devices Description No Information Available Encounters Description No Information Available Assessments Date Code Description Provider 06/01/2019 M54.16 Radiculopathy, lumbar region Peggy Flanagan MD 06/01/2019 M54.12 Radiculopathy, cervical region Peggy Flanagan MD Plan of Treatment 06/01/2019 - Peggy Flanagan, MDM54.16 Radiculopathy, lumbar regionNew Xrays:MRI Lumbar Spine W/O, Ordered: 06/01/19MRI Cervical Spine Wo, Ordered: 06/01/19MRI Lumbar Spine W/O, Ordered: 06/01/19New Orders:NCV Nerve Conduction Study, Ordered: 06/01/19M54.12 Radiculopathy, cervical regionNew Xrays:MRI Cervical Spine Wo, Ordered: 06/01/19MRI Cervical Spine Wo, Ordered: 06/01/19MRI Lumbar Spine W/O, Ordered: 06/01/19New Orders:NCV Nerve Conduction Study, Ordered: Comments:The patient has been having diffuse bilateral upper and lower extremity weakness and tingling. He feels that he has a hard time controlling his legs and he has noticed progressive weakness in his arms. He has pain across his lumbar spine and tightness in his neck. He has had no improvement thus far with physical therapy. His x-rays today show degenerative disc disease of the both the cervicaland lumbar spines. I would like to obtain further imaging with a MRI of the cervical and lumbar spines. I would like to obtain electrodiagnostic studies to further evaluate the weakness in his armsand legs. He should continue in the physical therapy. He is to follow- up with me after the MRI has been performed.M54.16 Radiculopathy, lumbar regionNew Xrays:MRI Lumbar Spine W/O, Ordered: 06/01/19MRI Cervical Spine Wo, Ordered: 06/01/19MRI Lumbar Spine W/O, Ordered: 06/01/19New Orders:NCV Nerve Conduction Study, Ordered: 06/01/19M54.12 Radiculopathy, cervical regionNew Xrays:MRI Cervical Spine Wo, Ordered: 06/01/19MRI Cervical Spine Wo, Ordered: MRI Lumbar Spine W/O, Ordered: 06/01/19New Orders:NCV Nerve Conduction Study, Ordered: 06/01/19Comments:The patient has been having diffuse bilateral upper and lower extremity weakness and tingling. He feels that he has a hard time controlling his legs and he has noticed progressive weakness in his arms. He has pain across his lumbar spine and tightness in his neck. He has had no improvement thus far with physical therapy. His x-rays today show degenerative disc disease of the both the cervicaland lumbar spines. I would like to obtain further imaging with a MRI of the cervical and lumbar spines. I would like to obtain electrodiagnostic studies to further evaluate the weakness in his armsand legs. He should continue in the physical therapy. He is to follow-up with me after the MRI has been performed. Functional Status Description No Information Available Mental Status Description No Information Available Referrals Description No Information Available
--- OUTSIDE RECORDS SUMMARY | 2019-06-28 12:41 | XMS REPORT | Continuity of Care Document ---
:1975 External Reference #:[id number] Author Name Roberto Silverio MD Address [address] [place] [address] Care Team Providers Name Role Phone Deborah Bro NP - Family Care Team Information Cassandra Consultant Problems Active Problems Provider Date Diarrhea Roberto Silverio MD Onset: 04/23/2018 Helicobacter pylori Roberto Silverio MD Onset: 04/23/2018 Benign prostatic hypertrophy with outflow Lizzie Vidal M.D. Onset: 2017 obstruction Social History Type Date Description Comments Sex Unknown Smokeless Tobacco Never Used Smokeless Tobacco ETOH Use Occasionally consumes few times a month alcohol Tobacco Use Start: Unknown End: Patient is a former QUIT 1999 Unknown smoker Recreational Drug Use Marijuana Smoking Status Reviewed: 02/05/19 Patient is a former QUIT 1999 smoker Allergies, Adverse Reactions, Alerts Description No Known Drug Allergies Medications Active Medications SIG Qnty Indications Ordering Date Provider Nitroglycerin 0.125% 1 unit apply to 30gm K60.2 Roberto Silverio, 2018 Ointment affected area 0.125 Ointment three times a day as needed Hydrocortisone Acetate every night 24units K60.2 Roberto Silverio, 2018 25mg Suppository Excedrin Extra 1 tab bid prn Roberto Silverio, 01/15/2018 Strength Per PT [id number] Tablets Preparation H A/D prn Unknown 0.25-88.44% Suppository Ibuprofen 200 4 po 4 x a day Unknown 200mg per patient Tablets Immunizations Description No Information Available Vital Signs Date Vital Result Comment 05/31/2019 10:22am BP Systolic Sitting Left Arm 120 mmHg BP Diastolic Sitting Left Arm 84 mmHg Body Temperature 95.4 F Heart Rate 68 /min Respiratory Rate 16 /min Height 72 inches 6'0" Weight 204.00 lb BMI (Body Mass Index) 27.7 kg/m2 BSA (Body Surface Area) 2.15 m2 Scroggins body weight in kilograms 81 kg O2 % BldC Oximetry 96 % Ra 02/19/2019 9:18am BP Systolic Sitting Left Arm 144 mmHg BP Diastolic Sitting Left Arm 98 mmHg Body Temperature 97.2 F Heart Rate 67 /min Respiratory Rate 16 /min Height 72 inches 6'0" Weight 204.00 lb BMI (Body Mass Index) 27.7 kg/m2 BSA (Body Surface Area) 2.15 m2 Scroggins body weight in kilograms 81 kg O2 % BldC Oximetry 97 % Ra Results Description No Information Available Procedures Date Code Description Status 05/31/2019 75938 Anoscopy Completed 05/31/2019 00497 Hemorrhoidectomy, single ligature Completed 02/19/2019 68879 Measurement Post Voiding Residual Urine By Completed Ultrasound,Non-Imaging 02/19/2019 58330 complex uroflowmetry electronic Completed 02/04/2018 [id number] Colonoscopy Completed 08/25/2012 [id number] Colonoscopy Completed Medical Devices Description No Information Available Encounters Type Date Location Provider Dx Diagnosis Office Visit 05/31/2019 GI Roberto Silverio MD K64.2 Third degree 10:30a hemorrhoids K60.2 Anal fissure, unspecified K59.00 Constipation, unspecified Office Visit 02/19/2019 9:00a Urology Lizzie Vidal N40.1 Benign prostatic M.D. hyperplasia with lower urinary tract symp Assessments Date Code Description Provider 05/31/2019 K64.2 Third degree hemorrhoids Roberto Silverio MD 05/31/2019 K60.2 Anal fissure, unspecified Roberto Silverio MD 05/31/2019 K59.00 Constipation, unspecified Roberto Silverio MD 02/19/2019 N40.1 Benign prostatic hyperplasia with lower Lizzie Vidal M.D. urinary tract sympto Plan of Treatment Future Appointment(s):06/21/2019 9:00 am - Roberto Silverio MD at GI05/31/2019 - Roberto Silverio MDK64.2 Third degree hemorrhoidsComments:bandedprescription for hydrocortisone suppositoryFollow up:3-4 iccjhN30.2 Anal fissure, unspecifiedNew Medication:Nitroglycerin 0.125% Ointment 0.125 - 1 unit apply to affected area three times a day as neededHydrocortisone Acetate 25 mg - every nightComments:nitroglycerin rakjzC47.00 Constipation, unspecifiedComments: add fiber to the diet benefiber Functional Status Description No Information Available Mental Status Description No Information Available Referrals Description No Information Available
--- OUTSIDE RECORDS SUMMARY | 2019-06-28 12:41 | XMS REPORT | Continuity of Care Document ---
:1975 External Reference #:[id number] Author Name Roberto Silverio MD Address [address] [place] [address] Care Team Providers Name Role Phone Deborah Bro NP - Family Care Team Information V Belt Curer [phone] Problems Active Problems Provider Date Diarrhea Roberto [...] Medications SIG Qnty Indications Ordering Date Provider Colace 1 by mouth daily 60caps K64.2 Roberto Silverio, 06/21/2019 100mg Capsules and can take twice a day as needed Proctofoam HC apply to affected 20gm Roberto Silverio, 06/01/2019 1-1% Foam area twice a day Nitroglycerin 0.125% 1 unit apply to 30gm K60.2 Roberto Silverio, 2018 Ointment affected area 0.125 Ointment three times a day as needed Excedrin Extra 1 tab bid prn Roberto Silverio, 01/15/2018 Strength Per PT [id number] Tablets Preparation H proctoA/D prn Unknown 0.25-88.44% Suppository Ibuprofen 200 4 po 4 x a day Unknown 200mg per patient Tablets History Medications Anusol-HC one per rectum 24units Roberto Silverio, 06/01/2019 - 25mg each night 06/16/2019 Suppository Hydrocortisone Acetate every night 24units K60.2 Roberto Silverio, 2018 - 06/01/2019 25mg Suppository Immunizations Description No Information Available Vital Signs Date Vital Result Comment 06/21/2019 9:15am BP Systolic Sitting Left Arm 119 mmHg BP Diastolic Sitting Left Arm 80 mmHg Body Temperature 96.8 F Heart Rate 74 /min Respiratory Rate 16 /min Height 72 inches 6'0" Weight 198.00 lb BMI (Body Mass Index) 26.9 kg/m2 BSA (Body Surface Area) 2.12 m2 Paron body weight in kilograms 81 kg O2 % BldC Oximetry 100 % Ra Pain Level 3 rectal 05/31/2019 10:22am BP Systolic Sitting Left Arm 120 mmHg BP Diastolic Sitting Left Arm 84 mmHg Body Temperature 95.4 F Heart Rate 68 /min Respiratory Rate 16 /min Height 72 inches 6'0" Weight 204.00 lb BMI (Body Mass Index) 27.7 kg/m2 BSA (Body Surface Area) 2.15 m2 Paron body weight in kilograms 81 kg O2 % BldC Oximetry 96 % Ra Results Description No Information Available Procedures Date Code Description Status 05/31/2019 19439 Hemorrhoidectomy, single ligature Completed 02/19/2019 25216 Measurement Post Voiding Residual Urine By Completed Ultrasound,Non-Imaging 02/19/2019 02279 complex uroflowmetry electronic Completed 02/04/2018 [id number] Colonoscopy Completed 08/25/2012 [id number] Colonoscopy Completed Medical Devices Description No Information Available Encounters Type Date Location Provider Dx Diagnosis Office Visit 05/31/2019 GI Roberto Silverio MD K64.2 Third degree 10:30a hemorrhoids K60.2 Anal fissure, unspecified K59.00 Constipation, unspecified Office Visit 02/19/2019 9:00a Urology Lizzie Vidal, N40.1 Benign prostatic M.D. hyperplasia with lower urinary tract symp Assessments Date Code Description Provider 06/21/2019 K64.2 Third degree hemorrhoids Roberto Silverio MD 05/31/2019 K64.2 Third degree hemorrhoids Roberto Silverio MD 05/31/2019 K60.2 Anal fissure, unspecified Roberto Silverio MD 05/31/2019 K59.00 Constipation, unspecified Roberto Silverio MD 02/19/2019 N40.1 Benign prostatic hyperplasia with lower Young, Jose G Samuel urinary tract sympto Plan of Treatment 06/21/2019 - Roberto Silverio MDK64.2 Third degree hemorrhoidsNew Medication: Colace 100 mg - 1 by mouth daily and can take twice a day as neededComments: banding of right anterior columnadd colace to regimen. follow up 2 weeks Functional Status Description No Information Available Mental Status Description No Information Available Referrals Description No Information Available
[2019-06-28 12:49] VITALS: BP 134/84
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
== END 2019-06-28 13:09 | disposition home or self-care (01) ==
LOC: UCCORT 12:26
DX: T24.191A Burn of first degree of multiple sites of right lower limb, except ankle and foot, initial encounter (principal); X16.XXXA Contact with hot heating appliances, radiators and pipes, initial encounter; Y93.I9 Activity, other involving external motion; Y92.9 Unspecified place or not applicable
CPT/HCPCS: 99212; G0463

== ENCOUNTER 2019-07-01 09:03 | Emergency (ER) | payer OTHER ==
[2019-07-01 13:10] VITALS: BP 119/87
--- NOTE | 2019-07-01 13:18 | ED ---
Neck Pain - HPI Summary HPI Summary: This patient is a 43-year-old male with a history of myelomalacia from MRI presenting from Dr. Araiza's office. He states he went over there to schedule an appointment for an anterior cervical decompression surgery and they sent him here. He states he is unsure why he is here. He denies any pain to the neck at this time. He is denying any symptoms including numbness or tingling to the bilateral lower extremities. - History of Current Complaint Chief Complaint: EDBackInjuryPain Stated Complaint: BACK PAIN PER PT Time Seen by Provider: 07/01/19 09:45 Hx Obtained From: Patient Severity Initially: Mild Severity Currently: None Pain Intensity: 0 Pain Scale Used: 0-10 Numeric Aggravating Factors: Nothing Associated Signs & Symptoms: Positive: Negative - Allergies/Home Medications Allergies/Adverse Reactions: Allergies Allergy/AdvReac Type Severity Reaction Status Date / Time naproxen AdvReac Vomiting Verified 07/01/19 09:11 Home Medications: Home Medications tiZANidine TAB* [Zanaflex TAB*] 4 mg PO TID 07/01/19 [History Confirmed 07/01/19 ] PMH/Surg Hx/FS Hx/Imm Hx Previously Healthy: No Endocrine/Hematology History: Reports: Hx Diabetes - PRE DIABETIC ON MEDS Denies: Hx Thyroid Disease Cardiovascular History: Denies: Hx Hypertension, Hx Pacemaker/ICD Respiratory History: Denies: Hx Asthma, Hx Chronic Obstructive Pulmonary Disease (COPD) GI History: Denies: Hx Ulcer History: Denies: Hx Renal Disease Musculoskeletal History: Denies: Hx Scoliosis Sensory History: Denies: Hx Hearing Aid Neurological History: Reports: Hx Migraine Psychiatric History: Denies: Hx Panic Disorder - Surgical History Surgery Procedure, Year, and Place: hemorrhoids banded- 02/04/2018 - Immunization History Hx Pertussis Vaccination: No Immunizations Up to Date: Yes Infectious Disease History: No Infectious Disease History: Denies: Hx Clostridium Difficile, Hx Hepatitis, Hx Human Immunodeficiency Virus (HIV), Hx of Known/Suspected MRSA, Hx Shingles, Hx Tuberculosis, Hx Known/ Suspected VRE, Hx Known/Suspected VRSA, History Other Infectious Disease, Traveled Outside the [place] in Last 30 Days - Family History Known Family History: Positive: Cardiac Disease, Hypertension, Diabetes - Social History Occupation: Employed Full-time Lives: With Family Alcohol Use: Occasionally Hx Substance Use: Yes Substance Use Type: Reports: Marijuana Substance Use Comment - Amount & Last Used: daily Hx Tobacco Use: Yes Smoking Status (MU): Former Smoker Type: Cigarettes Amount Used/How Often: quit 06/2014 Length of Time of Smoking/Using Tobacco: 20 years Have You Smoked in the Last Year: Yes Review of Systems Negative: Fever, Chills, Fatigue, Skin Diaphoresis Negative: Palpitations, Chest Pain Negative: Shortness Of Breath, Cough Negative: Arthralgia, Myalgia Negative: Rash, Bruising All Other Systems Reviewed And Are Negative: Yes Physical Exam Triage Information Reviewed: Yes Vital Signs On Initial Exam: Initial Vitals Temp Pulse Resp BP Pulse Ox 97.5 F 73 16 152/95 100 07/01/19 09:05 07/01/19 09:05 07/01/19 09:05 07/01/19 09:05 07/01/19 09:05 Vital Signs Reviewed: Yes Appearance: Positive: No Pain Distress, Well-Nourished Skin: Positive: Skin Color Reflects Adequate Perfusion Head/Face: Positive: Normal Head/Face Inspection Respiratory/Lung Sounds: Positive: Breath Sounds Present Cardiovascular: Negative: Tachycardia Musculoskeletal: Positive: Normal, Strength/ROM Intact Neurological: Positive: Speech Normal Psychiatric: Positive: Affect/Mood Appropriate Procedures - Sedation Patient Received Moderate/Deep Sedation with Procedure: No Diagnostics - Vital Signs Vital Signs Temp Pulse Resp BP Pulse Ox 07/01/19 13:09 98 F 71 18 119/87 98 07/01/19 10:45 67 18 135/92 97 07/01/19 09:05 97.5 F 73 16 152/95 100 - Laboratory Lab Statement: Any lab studies that have been ordered have been reviewed, and results considered in the medical decision making process. Neck Course/Dx - Course Course Of Treatment: On arrival into the ED, Dr. Díaz office was called several times with no response. Spoke with Dr. Díaz who states he was going to be scheduled for surgery today, but pt left and returned to the office today. He is able to schedule surgery early next week and advised pt to return to office tmw to schedule this. Discussed with pt who agrees with this plan and prefers to go home and schedule surg tmw. Offered [place] J collar but pt refused stating he has no sxs and wld prefer just to go to office tmw. - Diagnoses Provider Diagnoses: Neck pain Discharge ED - Sign-Out/Discharge Documenting (check all that apply): Patient Departure - Discharge Plan Condition: Stable Disposition: HOME Referrals: Deborah Bro [Primary Care Provider] - Additional Instructions: As discussed, please follow up with Dr. Díaz office tomorrow to schedule your surgical appt - Billing Disposition and Condition Condition: STABLE Disposition: Home
== END 2019-07-01 13:09 | disposition home or self-care (01) ==
LOC: ED 09:03
DX: M54.2 Cervicalgia (principal); E11.9 Type 2 diabetes mellitus without complications; Z87.891 Personal history of nicotine dependence; Z79.84 Long term (current) use of oral hypoglycemic drugs; Z79.899 Other long term (current) drug therapy; Z88.8 Allergy status to other drugs, medicaments and biological substances
CPT/HCPCS: 99282

== ENCOUNTER 2019-07-22 05:45 | Inpatient (IN) | payer OTHER ==
[~2019-07-22 05:45] MED LIST: Buffered Lidocaine 1% SYRIN* 1 ML/SYRINGE INTRADERM ONE
--- OUTSIDE RECORDS SUMMARY | 2019-07-22 05:51 | XMS REPORT | Continuity of Care Document ---
:1975 External Reference #:[id number] Author Name Roberto Silverio MD Address [address] [place] [address] Care Team Providers Name Role Phone Deborah Bro NP - Family Care Team Information Prosthetics Lab Technician [phone] Problems Active Problems Provider Date Diarrhea Roberto [...] Proctofoam HC apply to affected 20gm Roberto Silvreio, 06/01/2019 1-1% Foam area twice a day Nitroglycerin 0.125% 1 unit apply to 30gm K60.2 Roberto Silverio, 2018 Ointment affected area 0.125 Ointment three times a day as needed Excedrin Extra 1 tab bid prn Roberto Silverio, 01/15/2018 Strength Per PT [phone] Tablets Preparation H proctoA/D prn Unknown 0.25-88.44% Suppository Ibuprofen 200 4 po 4 x a day Unknown 200mg per patient Tablets History Medications Anusol-HC one per rectum 24units Roberto Silverio, 06/01/2019 - 25mg each night 06/16/2019 Suppository Hydrocortisone Acetate every night 24units K60.2 Roberto Silverio, 2018 - 06/01/2019 25mg Suppository Immunizations Description No Information Available Vital Signs Date Vital Result Comment 07/12/2019 8:39am BP Systolic Sitting Left Arm 118 mmHg BP Diastolic Sitting Left Arm 81 mmHg Body Temperature 95.5 F Heart Rate 70 /min Respiratory Rate 24 /min Height 72 inches 6'0" Weight 195.25 lb BMI (Body Mass Index) 26.5 kg/m2 BSA (Body Surface Area) 2.11 m2 [employer] body weight in kilograms 81 kg O2 % BldC Oximetry 98 % Ra Pain Level 0 06/21/2019 9:15am BP Systolic Sitting Left Arm 119 mmHg BP Diastolic Sitting Left Arm 80 mmHg Body Temperature 96.8 F Heart Rate 74 /min Respiratory Rate 16 /min Height 72 inches 6'0" Weight 198.00 lb BMI (Body Mass Index) 26.9 kg/m2 BSA (Body Surface Area) 2.12 m2 [employer] body weight in kilograms 81 kg O2 % BldC Oximetry 100 % Ra Pain Level 3 rectal Results Description No Information Available Procedures Date Code Description Status 07/12/2019 02836 Anoscopy Completed 07/12/2019 08868 Hemorrhoidectomy, single ligature Completed 06/21/2019 76265 Hemorrhoidectomy, single ligature Completed 05/31/2019 96306 Hemorrhoidectomy, single ligature Completed 02/19/2019 00817 Measurement Post Voiding Residual Urine By Completed Ultrasound,Non-Imaging 02/19/2019 87784 complex uroflowmetry electronic Completed 02/04/2018 07949808 Colonoscopy Completed 08/25/2012 62441726 Colonoscopy Completed Medical Devices Description No Information Available Encounters Type Date Location Provider Dx Diagnosis Office Visit 06/21/2019 GI Roberto Silverio MD K64.2 Third degree 9:00a hemorrhoids Office Visit 05/31/2019 GI Roberto Silverio MD K64.2 Third degree 10:30a hemorrhoids K60.2 Anal fissure, unspecified K59.00 Constipation, unspecified Office Visit 02/19/2019 9:00a Urology Lizzie Vidal, N40.1 Benign prostatic M.D. hyperplasia with lower urinary tract symp Assessments Date Code Description Provider 07/12/2019 K64.1 Second degree hemorrhoids Roberto Silverio MD 06/21/2019 K64.2 Third degree hemorrhoids Roberto Silverio MD 05/31/2019 K64.2 Third degree hemorrhoids Roberto Silverio MD 05/31/2019 K60.2 Anal fissure, unspecified Roberto Silverio MD 05/31/2019 K59.00 Constipation, unspecified Roberto Silverio MD 02/19/2019 N40.1 Benign prostatic hyperplasia with lower Lizzie Vidal M.D. urinary tract sympto Plan of Treatment 07/12/2019 - Roberto Silverio MDK64.1 Second degree hemorrhoidsComments:banding of RP hemorrhoid.continue fiber and stool softenerfollow up as needed Functional Status Description No Information Available Mental Status Description No Information Available Referrals Description No Information Available
[2019-07-22] MEDS ORDERED: Dexamethasone IV* 4 MG/ML 1 ML (4 MG) IV SLOW PU ONE (06:00)
[2019-07-22] MEDS ORDERED: Lactated Ringers 1000 ML Bag* 1,000 ML IV SCH ×2 (06:00→13:00)
[2019-07-22] MEDS ORDERED: Famotidine IV* 10 MG/ML 2 ML (20 mg) IV ONE (06:00)
[2019-07-22] MEDS ORDERED: Lidocaine 1% w EPI 1:200,000* SDV 30 ML VIAL ONE ×2 (06:41→06:42)
[2019-07-22] MEDS ORDERED: Dexamethasone IV* 4 MG/ML 1 ML (4 MG) ONE ×2 (06:42→08:22)
[2019-07-22] MEDS ORDERED: Buffered Lidocaine 1% SYRIN* 1 ML/SYRINGE INTRADERM ONE (06:42)
[2019-07-22] MEDS ORDERED: Bacitracin INJECTION* 50,000 UNITS ONE (06:42)
[2019-07-22] MEDS ORDERED: Famotidine IV* 10 MG/ML 2 ML (20 mg) ONE (06:43)
[2019-07-22] MEDS ORDERED: ceFAZolin 2 GM in NS PREMIX(*) 2 GM/100 ML BAG IVPB ONE ×2 (06:43→11:46)
[2019-07-22] MEDS ORDERED: fentaNYL* 50 MCG/ML 2 ML VIAL (100 MCG VIAL) ONE ×4 (07:03→13:27)
[2019-07-22] MEDS ORDERED: Midazolam* 1 MG/ML 5 ML VIAL (5 MG) ONE (07:03)
[2019-07-22] MEDS ORDERED: Propofol* 10 MG/ML 20 ML BTL ONE (07:03)
[2019-07-22] MEDS ORDERED: Succinylcholine* 20 MG/ML 10 ML VIAL ONE (07:03)
[2019-07-22] MEDS ORDERED: Lidocaine 2% PF * 5 ML VIAL ONE (07:04)
[2019-07-22] MEDS ORDERED: Remifentanil* 2 MG VIAL ONE (07:04)
[2019-07-22] MEDS ORDERED: Rocuronium* 10 MG/ML VIAL ONE (07:34)
[2019-07-22] MEDS ORDERED: Phenylephrine 40 MCG/ML SYRINGE ONE (08:00)
[2019-07-22] MEDS ORDERED: Propofol* 500 MG/50 ML BTL ONE ×2 (08:08→11:30)
[2019-07-22] MEDS ORDERED: Phenylephrine 10 MG/ML VIAL* 1 ML VIAL ONE (08:27)
[2019-07-22] MEDS ORDERED: EPHEDrine (Pressors)* 50 MG/ML VIAL ONE (08:57)
[2019-07-22] MEDS ORDERED: Scopolamine 1.5 mg* PATCH TRANSDERM PRN (10:54)
[2019-07-22] MEDS ORDERED: Naloxone* 0.4 MG/ML 1 ML VIAL IV PRN (10:54)
[2019-07-22] MEDS ORDERED: DiMENhydriNATE IV* 50 MG/ML VIAL IV PUSH PRN (10:54)
[2019-07-22] MEDS ORDERED: HYDROcodone/ACETAMIN 5-325 MG* 1 TAB PO PRN ×2 (10:54→12:55)
[2019-07-22] MEDS ORDERED: PROCHLORPERAZINE INJ 5 MG/ML 2 ML VIAL ONE (11:12)
[2019-07-22] MEDS ORDERED: Ondansetron INJ* 2 MG/ML VIAL ONE ×2 (11:48→18:11)
[2019-07-22] MEDS ORDERED: oxyCODONE/Acetamin 5/325 MG* TAB ONE (13:03)
[2019-07-22] MEDS ORDERED: oxyCODONE/Acetamin 10/325(NF) TAB PO PRN (13:05)
[2019-07-22] MEDS: fentaNYL* 50 MCG/ML 2 ML VIAL (100 MCG VIAL) IV PRN ×4 (13:07→13:30)
[2019-07-22] MEDS: oxyCODONE/Acetamin 5/325 MG* TAB PO PRN ×3 (13:08→18:49)
[2019-07-22] MEDS ORDERED: HYDROmorphone INJ* 0.5 MG/0.5 ML SYRINGE IV ONE (15:30)
[2019-07-22] MEDS ORDERED: HYDROmorphone INJ* 0.5 MG/0.5 ML SYRINGE IV SLOW PU PRN (16:06)
--- NOTE | 2019-07-22 17:20 | OP ---
DATE OF OPERATION: 07/22/19 - ROOM #335 DATE OF : 75 SURGEON: Berry Lopes MD THERAPEUTIC CONSULTANT: SHARRI Suazo. The case was done with the assistance of surgical PA because of the complexity of the case. ANESTHESIA: General. PRE-OP DIAGNOSES: 1. Degenerative disk disease. 2. Myelopathy. 3. Radiculopathy. POST-OP DIAGNOSES: 1. Degenerative disk disease. 2. Myelopathy. 3. Radiculopathy. OPERATIVE PROCEDURE: The patient underwent anterior cervical diskectomy and fusion at C3-4 and C4-5 with PEEK interbody cages, local autologous bone graft, DBX, plate and screws with intraoperative monitoring. ESTIMATED BLOOD LOSS: 15 cc. COMPLICATIONS: None. SUMMARY: The patient is a very pleasant 44-year-old gentleman with findings of cervical spondylotic myelopathy. The patient had MRI findings consistent with degenerative disk disease, significant stenosis at C3-4 and C4-5 with myelomalacia. He was offered the option of surgical intervention. After explaining the expectations, limitations , and possible complications to the patient and his significant other with complications including, but not limited to bleeding, infection, risk of injury to adjacent structures, coma, paralysis, , need for additional procedures, anesthesia risks, stroke, blindness, cancer, instability, hardware failure, adjacent level disease, pseudoarthrosis, recurrent laryngeal nerve injury, spinal fluid leak, Gonzalez syndrome, injury to the esophagus or trachea, need for tracheostomy or gastrostomy, need for prolonged ICU stay, prolonged hospitalization, prolonged rehabilitation, paralysis, deep venous thrombosis, pulmonary embolism, postoperative hematoma formation; the patient was agreeable to proceed with surgery and informed consent was obtained. The patient understood that his condition may not improve and, in fact, may get worse after surgery, and that he may need to have additional procedures in the future. The patient understood that the purpose of the procedure is to avoid further neurological injury and that his condition may not be possible to return to normal. The patient understood that he may need additional procedures in the future and he may require, prolonged ICU stay, prolonged hospitalization, and prolonged rehabilitation. He understood that operative plan may be modified according to intraoperative findings and conditions and that the procedure may be abandoned or done in more than 1 stages. Informed consent was obtained. DESCRIPTION OF PROCEDURE: The patient was brought to the operating room and was placed under general anesthesia by the anesthesia team. He was carefully positioned supine on the Nazario table and all bony prominences were meticulously padded. His skin was prepped and draped in the standard fashion, and after appropriate surgical pause and patient identification, the incision site was marked on the skin with use of intraoperative fluoroscopic imaging. A transverse incision to the right of the midline was marked on the skin and infiltrated with local anesthetic over the level of C4 approximately. The incision was performed with a #10 surgical blade and was carried down to the platysma muscle with Bovie cautery. The skin was gently undermined and the platysma muscle was gently elevated and divided with use of tenotomy scissors. The platysma muscle was undermined and after advancing the self-retaining retractors into the field, the plane between the medial border of the sternocleidomastoid and the medial structures was gently developed with sharp and dull dissection. After the prevertebral fascia was identified, it was gently divided and the anterior part of the spinal column was visualized. Intraoperative fluoroscopic imaging confirmed appropriate surgical level. The self-retaining retractors were introduced into the field. High-speed drill was used to perform an entry point for the [place] pins, which were placed in C3, C4 and C5 vertebral bodies. The self-retaining retractors were positioned carefully and Apfelbaum maneuver was performed every time that the self- retaining retractors were repositioned. Under microscopic magnification, a diskectomy and disk space preparation was performed at the C3-4 level after incising the annulus fibrosus with #15 surgical blade. Locally harvested bone graft during the disk space preparation was saved for the arthrodesis part of the procedure. The diskectomy was carried out with use of pituitary rongeurs, Kerrison punches, curettes, and high-speed drill. Large osteophyte was found in the posterior aspect of the C3 and C4 vertebral bodies as well as significant disk herniation as expected from preoperative imaging. This was gently removed with Kerrison punches and at the end of the procedure, the thecal sac and the nerve roots were found to be free of any pressure phenomenon. After copious irrigation, confirmation of meticulous hemostasis, meticulous inspection and after appropriate sizing, an 8-mm height PEEK interbody cage was introduced at the C3-4 level. The [place] pin from C3 was removed and then attention was brought to repeat the procedure at the C4-5 level. Again, the Apfelbaum maneuver was performed after repositioning of the retractors and a similar diskectomy and preparation of the disk space was performed at the C4-5 level. Another 8-mm PEEK interbody cage from [employer] was then introduced after being filled with locally harvested bone graft during the diskectomy and disk preparation phase of the procedure as well as DBX putty. A similar graft material was used for the C3-4. After removing the [place] pins, confirmation of meticulous hemostasis and after copious irrigation , a Zevo plate was placed at C3-4 level and secured in place with 15-mm titanium screws. Intraoperative fluoroscopic imaging confirmed excellent placement of all hardware. Then, the self-retaining retractors were removed from the field and after copious irrigation, confirmation of meticulous hemostasis and meticulous inspection, the wound was closed by layers over a Andrea drain which was tunneled through a separate stab wound incision. 2-0 interrupted Vicryl sutures were used to approximate the platysma muscle and the subcutaneous tissue was approximated with inverted interrupted 2-0 Vicryl sutures. The skin was then approximated with Dermabond and covered with sterile sponges. At the end of the procedure, all counts were reported to be correct. The patient remained hemodynamically stable throughout the case. Intraoperative electrophysiological monitoring remained stable throughout the case. The patient was then extubated and was transferred to Recovery in excellent condition. The case was done with the assistance of surgical PA because of the complexity of the case. [id number]/[facility] #: [id number] FABIAN
[2019-07-22] MEDS ORDERED: Docusate CAP* 100 MG PO PRN (17:21)
[2019-07-22] MEDS: oxyCODONE TAB* 5 MG TAB PO PRN (18:49)
--- NOTE | 2019-07-22 19:07 | CONS ---
CONSULTATION REPORT: DATE OF CONSULT: 07/22/19 REQUESTING PROVIDER: Dr. Lopes. REASON FOR CONSULT: General co-medical management. HISTORY OF PRESENT ILLNESS: This is a 44-year-old male with a past medical history that is significa nt for prediabetes and degenerative disk disease who was admitted on 07/22/19 status post C3-4, C4-5 ACDF with PEEK cage after failing conservative outpatient management. Hospitalists were asked to con sult for general co-medical management. The patient was seen in his room resting in bed, eyes closed , [place] J collar in place and stated pain was being adequately controlled, denied any nausea or vomit ing. PAST MEDICAL HISTORY: Prediabetes, tibial fracture at age 14 and degenerative disk disease. PAST SURGICAL HISTORY: None. HOME MEDICATIONS: 1. Metformin 500 mg p.o. b.i.d. 2. Melatonin 5 mg p.o. q.p.m. as needed. 3. Ibuprofen 800 mg p.o. t.i.d. p.r.n. pain. 4. Colace 100 mg p.o. b.i.d. ALLERGIES: To NAPROXEN and EXTERNAL ALLERGIES. FAMILY HISTORY: Mother had diabetes and AIDS. Sister had breast cancer. SOCIAL HISTORY: The patient quit smoking several years ago, drinks about 1 to 2 glasses of wine a ni ght, smokes marijuana daily. 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 Lives with his girlfriend and his 6 children. REVIEW OF SYSTEMS: The patient is in minor pain to the anterior neck. Denies any numbness or unilat eral weakness. Trace tingling to bilateral hands, which he states is much improved from prior to the neuromedical center. PHYSICAL EXAM: Vital Signs: 97.8 Fahrenheit, 74 pulse, 16 resps, 97% oxygen on room air, and 138/75 blood pressure. General: This is a well-developed gentleman seen resting in bed, with [place] J michoacano ar in place, no acute distress. Eyes: Conjunctivae pink and moist. PERRLA. EOMs intact. ENT: Figueroa pharynx clear. Mucous membranes moist. Neck: Unable to palpate due to [place] J collar. Cardiac: S1, S2 present. Heart rate regular. No murmurs, gallops, or rubs appreciated. Respiratory: Lung sound s clear throughout bilaterally on room air. No accessory muscle use noted. Abdomen: Soft, nontende r, nondistended, positive bowel sounds x4. Musculoskeletal: No clubbing or cyanosis appreciated. F ull range of motion in all extremities. Skin: Dressing to anterior neck is clean, dry, and intact w ith Andrea drain, draining scant amount of dark kraft red sanguinous drainage. Neuro: No focal defic its appreciated. Slightly diminished sensation to bilateral hands. Psych: Alert and oriented x4. No anxiety or depression noted. Thought content organized. DIAGNOSTIC STUDIES/LAB DATA: POC glucose is 88. No current diagnostics. ASSESSMENT AND PLAN: My impression is that this is a 44-year-old male with a past medical history fo r prediabetes and degenerative disk disease who was admitted on 07/22/19 for C3-4, C4-5 anterior cerv ical discectomy and fusion with PEEK cage. 1. C3-4, C4-5 anterior cervical discectomy and fusion with PEEK cage. Pain control per Dr. Hannah os. PT ordered. We will obtain cervical x-ray in the a.m. To keep [place] J collar on at all times. Record Andrea drain output. Neuro checks q.4 and incentive spirometry. 2. Prediabetes. We will hold home metformin. The patient states he does not check his fingersticks at home. Encourage the patient to purchase a glucometer. Blood sugar here in the hospital was 88. We will order fingersticks twice a day with no sliding scale coverage but to call us if blood sugar i s less than 60 or greater than 200. 3. DVT prophylaxis. Continue SCDs. 4. Code status is full code. DISPOSITION: Admit inpatient to [facility]. CONDITION: Fair. TIME SPENT: Time spent with the patient is about 40 minutes with more than half of this is spent [id number]. Thank you for allowing us to participate in the care of this patient. We will follow during this adm ission. [id number]/[facility] #: [id number]
[2019-07-22] MEDS: Ondansetron INJ* 2 MG/ML VIAL IV PRN (21:11)
[2019-07-23] MEDS: oxyCODONE TAB* 5 MG TAB PO PRN ×5 (00:30→21:37)
[2019-07-23] MEDS: oxyCODONE/Acetamin 5/325 MG* TAB PO PRN ×3 (00:31→13:00)
--- NOTE | 2019-07-23 08:37 | PN ---
Progress Note - Progress Note Date of Service: 07/23/19 SOAP: Subjective: [] 44 y/o male post ACDF of C3-C5 POD # 1 patient doing well, reports improvement with UPE strength and radicular pain. He also reports improvement with sensation. His pain has been well controlled with medication, he has been able to swallow and has tolerated orals. Patient has been able to ambulating around the unit, has not had any acute issues overnight. His drain put out 20 ml over night. Objective: [] Initial Vitals Temp Pulse Resp BP Pulse Ox 97.7 F 59 18 134/87 99 07/16/19 12:28 07/16/19 12:28 07/16/19 12:28 07/16/19 12:28 07/16/19 12:28 General: patient laying in bed NAD Neuro: A&O x 3, CN II - XII grossly intact, EOM intact UPE motor strength intact 5/5 throughout LE: Motor strength 5/5 throughout EHL 5/5 sensation intact throughout, DTR 2+/4 Derm: wound C/D/I, drain intact Assessment: [] Patient is POD #1 from ACDF C3 -C5 is doing well radicular symptoms have improved, patient is tolerating orals and is ambulating with minimal assistance , he is stable over night. Plan: [] 1) D/C drain 2) Follow up X ray's this morning 3) D/C planning
[2019-07-23] MEDS: Ondansetron INJ* 2 MG/ML VIAL IV PRN (10:10)
[2019-07-23] MEDS ORDERED: Ondansetron INJ* 2 MG/ML VIAL IV PRN (14:20)
--- NOTE | 2019-07-23 16:06 | PN ---
Subjective Date of Service: 07/23/19 Interval History: Patient was seen resting in bed. Stated he had been taking a nap after receiving zofran. Has been struggling with pain which then triggers nausea. Spoke with him about pain management strategies as patient had declined pain medication in the overnight. He did not feel that the nausea was brought on by the oxycodone, which did give him adequate relief. Family History: Unchanged from Admission Social History: Unchanged from Admission Past Medical History: Unchanged from Admission Objective Active Medications: Acetaminophen (Tylenol Tab*) 975 mg PO TID YAIMA Docusate Sodium (Colace Cap*) 100 mg PO BID PRN PRN Reason: CONSTIPATION Hydromorphone HCl (Dilaudid Inj*) 0.5 mg IV SLOW PU Q4H PRN PRN Reason: PAIN - SEVERE Last Admin: 07/22/19 21:49 Dose: 0.5 mg Lactated Ringer's (Lactated Ringers 1000 Ml Bag*) 1,000 mls @ 75 mls/hr IV .per rate YAIMA Ondansetron HCl (Zofran Inj*) 4 mg IV Q4H PRN PRN Reason: NAUSEA Last Admin: 07/23/19 14:37 Dose: 4 mg Oxycodone HCl (Roxycodone Tab*) 10 mg PO Q4H PRN PRN Reason: PAIN - SEVERE Pharmacy Profile Note (Scopolamine Patch Remove*) 1 note PATCH OFF Q72H ONE Stop: 07/25/19 10:56 Scopolamine (Transderm-Scop 1.5 Mg Patch*) 1 patch TRANSDERM Q72H PRN PRN Reason: Nausea/Vomiting Vital Signs - 8 hr 07/23/19 07/23/19 07/23/19 08:02 08:03 10:27 Temperature Pulse Rate Respiratory 20 18 18 Rate Blood Pressure (mmHg) O2 Sat by Pulse Oximetry 07/23/19 07/23/19 07/23/19 10:28 11:16 13:00 Temperature 97.9 F Pulse Rate 76 Respiratory 18 16 16 Rate Blood Pressure 160/89 (mmHg) O2 Sat by Pulse 100 Oximetry 07/23/19 07/23/19 14:39 15:20 Temperature 99.7 F Pulse Rate 66 Respiratory 18 16 Rate Blood Pressure 126/69 (mmHg) O2 Sat by Pulse 100 Oximetry Oxygen Devices in Use Now: None Appearance: Well developed gentleman seen resting in bed. No acute distress. Eyes: No Scleral Icterus, PERRLA Ears/Nose/Mouth/Throat: NL Teeth, Lips, Gums, Clear Oropharnyx, Mucous Membranes Moist Neck: NL Appearance and Movements; NL JVP, - - [place] J collar in place. Respiratory: Symmetrical Chest Expansion and Respiratory Effort, Clear to Auscultation Cardiovascular: NL Sounds; No Murmurs; No JVD, RRR, No Edema Abdominal: NL Sounds; No Tenderness; No Distention Extremities: No Edema, No Clubbing, Cyanosis Skin: No Rash or Ulcers, No Nodules or Sclerosis Neurological: Alert and Oriented x 3, - - Trace decreased sensation to left hand. Lines/Tubes/Other Access: Clean, Dry and Intact Peripheral IV Assess/Plan/Problems-Billing Assessment: This is a 44 year old male with a PMH of prediabetes and degenerative disc disease who was admitted on 07/22/19 for C3-4, C4-5 anterior cervical discectomy and fusions with PEEK cage. - Patient Problems (1) S/P spinal surgery Current Visit: Yes Status: Acute Code(s): Z98.890 - OTHER SPECIFIED POSTPROCEDURAL STATES SNOMED Code(s): 953607248 Comment: -PT ordered. -Patient experience several bouts of nausea due to pain. Did not take pain medication in the overnight. Provided education about pain management strategies. Ordered scheduled tylenol with oxycodone as needed. -Drain d/will this AM. Likely D/C to home tomorrow. -[place] J at all times. (2) Prediabetes Current Visit: Yes Status: Acute Code(s): R73.03 - PREDIABETES SNOMED Code (s): 272348271 Comment: -Held home metformin. -Blood sugars have been below 135 without insulin, will continue to monitor blood glucose BID. May resume metformin upon discharge. (3) DVT prophylaxis Current Visit: Yes Status: Acute Code(s): Z29.9 - ENCOUNTER FOR PROPHYLACTIC MEASURES, UNSPECIFIED SNOMED Code(s): 832814839 Comment: -SCD's (4) Full code status Current Visit: Yes Status: Acute Code(s): Z78.9 - OTHER SPECIFIED HEALTH STATUS SNOMED Code(s): 926556140 Status and Disposition: Disposition: Inpatient on [facility]. Condition: Fair, likely D/C tomorrow. Attending: Jermaine Beck
[2019-07-23] MEDS: Acetaminophen TAB* 325 MG PO SCH (20:36)
[2019-07-24] MEDS: oxyCODONE TAB* 5 MG TAB PO PRN ×3 (02:36→11:31)
--- NOTE | 2019-07-24 07:22 | PN ---
Progress Note - Progress Note Date of Service: 07/24/19 SOAP: Subjective: []Patient doing well this morning, did not have an episodes of nausea overnight. He has been able swallow and tolerate orals. His pain is well controlled and vitals have been stable overnight. Objective: [] Initial Vitals Temp Pulse Resp BP Pulse Ox 97.7 F 59 18 134/87 99 07/16/19 12:28 07/16/19 12:28 07/16/19 12:28 07/16/19 12:28 07/16/19 12:28 General: patient laying in bed NAD Neuro: A&O x 3, CN II - XII grossly intact, EOM intact UPE motor strength intact 5/5 throughout LE: Motor strength 5/5 throughout EHL 5/5 Sensation intact with light touch. Wound: dressing clean Assessment: [] Patient is POD #2 s/p ACDF C3-C5, his nausea has improved and pain well managed overnight, he is stable with no acute issues. Plan: [] 1) Patient can be discharged home if cleared by medicine. D/C plan was put in yesterday and medications were sent to pharmacy.
[2019-07-24] MEDS: Acetaminophen TAB* 325 MG PO SCH (09:07)
[2019-07-24 11:32] VITALS: BP 143/92
--- NOTE | 2019-07-24 22:05 | DS ---
CC: Dr. Deborah Bro.* DISCHARGE SUMMARY: DATE OF ADMISSION: 07/22/19 DATE OF DISCHARGE: 07/24/19 ATTENDING PHYSICIAN: Dr. Medley.* (DICTATED BY CATLAINO HARP NP) PRIMARY CARE PHYSICIAN: Dr. Deborah Bro. OTHER PHYSICIAN: Dr. Lopes. PRIMARY DIAGNOSES: Status post C3-4 and C4-5 anterior cervical diskectomy and fusion with PEEK interbody cages, local autologous bone graft, DBX plate and screws. SECONDARY DIAGNOSES: 1. Prediabetes. 2. Possible hypertension. STUDIES: Postoperative cervical spinal x-ray showed immediate postoperative changes related to C3-C5 ACDF and there is nonspecific vertebral soft tissue swelling and advanced C5-6 degenerative disk disease. PERTINENT LAB DATA: POC glucose has been ranging between 90 and 130, though generally staying in the low 100s, 110s. HISTORY OF PRESENT ILLNESS/HOSPITAL COURSE: This is a 44-year-old male with a past medical history significant for prediabetes and degenerative disk disease who was admitted on 07/22/19 status post a C3-4, C4-5 ACDF with PEEK cage after failing conservative outpatient management. Cheesh-Na J collar on at all times, the postoperative course was relatively insignificant. Immediately postoperatively he had a Andrea drain placed that was removed on 07/23/19 without consequence. The patient was not discharged yesterday due to issues with pain and nausea. His pain management had not been optimal due to the patient trying to refrain from taking narcotics. At that time educated the patient about pain management, had placed patient on t.i.d. Tylenol as well as oxycodone as needed, which helped to relieve pain greatly and has had no further issues with nausea. Today, the patient was seen resting in bed. Denied pain, denied nausea or chest pain, shortness of breath, nausea, vomiting , abdominal pain. Tingling that he had had previously in his left hand has completely resolved, hand grasps are equal, no bleeding at the surgical site, dressing to the anterior neck is clean dry and intact. States he feels ready to go home REVIEW OF SYSTEMS: A 11-point system review was performed with no significant pertinent positive findings. Pertinent negatives are as per HPI. PHYSICAL EXAM: Temperature 98.0 Fahrenheit, 70 pulse, 17 respirations, 100% oxygen on room air, and 146/83 blood pressure. General: This is a well- developed gentleman seen resting in bed with [place]esh[place] J collar on, no acute distress noted. Eyes conjunctivae pink and moist. EOMs intact. PERRLA. ENT: Mucous membranes moist. Oropharynx clear. Neck: Unable to clearly assess neck due to [place]esh[place] J collar, though dressing anteriorly is clean, dry, and intact. Cardiac: S1, S2 present. Heart rate regular. No murmurs, gallops or rubs appreciated. Respiratory: Lung sounds clear throughout bilaterally on room air, diminished in bilateral bases with no wheezes, rhonchi, or accessory muscle use noted. Abdomen is soft nontender, nondistended, with positive bowel sounds x4. Musculoskeletal: 5/5 strength to bilateral upper and lower extremities. No clubbing or cyanosis appreciated. Skin: Dressing to anterior neck is clean, dry, and intact. No evidence of bleeding or infection. Neurologic: No focal deficits appreciated. Hand grasps strong and equal bilaterally. Able to dorsi and plantarflex equally. Psych: Alert and oriented x3. Thought content organized. DISCHARGE PLAN: The patient may resume a consistent carb diet with no restrictions. I recommended that he have liquids close at hand in case he has difficulty swallowing. ACTIVITY: No twisting, bending or heavy lifting. Otherwise, may walk as tolerated and going up stairs is okay. Wear Cheesh-Na J collar at all times. RETURN PRECAUTIONS: The patient is to return to the hospital if he is having any increasing numbness or weakness in any extremity, sudden incontinence of bowel or bladder, sudden chest pain or shortness of breath or change in level of consciousness or confusion. No equipment needed for home. PROBLEMS: 1. C3-4, C4-5 ACDF with PEEK cage. The patient is to take Tylenol and oxycodone for pain control, again avoid heavy lifting, to follow up with Neurosurgery in 1 week and monitor for signs and symptoms of infection. 2. Prediabetes. The patient may resume his home metformin. 3. Possible hypertension during the hospital course. His blood pressures have been slightly elevated between 120s to 150s consistently throughout his stay. Would like to have him follow up with primary care physician in 1 week for additional readings and possible initiation of hypertension management. 4. Home medications. Continue metformin 500 mg p.o. b.i.d., melatonin 5 mg p.o. q.a.m., oxycodone 5 mg q.4 hours p.r.n. max daily dose 4, acetaminophen 975 mg p.o. t.i.d., ondansetron 4 mg p.o. q.6 hours p.r.n. max daily dose of 4 and docusate 100 mg p.o. b.i.d. p.r.n. CONDITION UPON DISCHARGE: Stable. DISPOSITION: Home. TIME SPENT: About 30 minutes with about half of that spent [id number]. CATALINO HARP, ROLLER PRINT TENDER [id number]/[facility] #: [id number] FABIAN
[2019-07-25] MEDS ORDERED: Scopolamine PATCH Remove* 1 NOTE MISC PATCH OFF ONE (10:55)
== END 2019-07-24 12:00 | disposition home or self-care (01) | DRG 321 ==
LOC: AA 05:45 → SSU 12:55
PROVIDERS: ADMIT Neurological Surgery; ATTEND Internal Medicine
PROC: 0RB30ZZ Excision of Cervical Vertebral Disc, Open Approach (ICD-10-PCS; 2019-07-22)
PROC: 0RG20A0 Fusion of 2 or more Cervical Vertebral Joints with Interbody Fusion Device, Anterior Approach, Anterior Column, Open Approach (ICD-10-PCS; principal; 2019-07-22 07:30)
DX: M47.12 Other spondylosis with myelopathy, cervical region (principal); G95.89 Other specified diseases of spinal cord; M50.01 Cervical disc disorder with myelopathy, high cervical region; M50.11 Cervical disc disorder with radiculopathy, high cervical region; M47.22 Other spondylosis with radiculopathy, cervical region; M40.202 Unspecified kyphosis, cervical region; M48.02 Spinal stenosis, cervical region; M47.896 Other spondylosis, lumbar region; M25.78 Osteophyte, vertebrae; R73.03 Prediabetes; I10 Essential (primary) hypertension; Z79.84 Long term (current) use of oral hypoglycemic drugs; Z79.1 Long term (current) use of non-steroidal anti-inflammatories (NSAID); Z79.899 Other long term (current) drug therapy; Z88.8 Allergy status to other drugs, medicaments and biological substances; Z83.3 Family history of diabetes mellitus; Z80.3 Family history of malignant neoplasm of breast; Z87.891 Personal history of nicotine dependence; M51.36 Other intervertebral disc degeneration, lumbar region
CPT/HCPCS: 72040; 76000; A9270-GY; C1713; C1776; C9359; G8978-GP-CK; G8979-GP-CI; G8980-GP-CI; J0330; J0690; J0780; J1100; J1170; J2001; J2250; J2405; J2704; J3010

== ENCOUNTER 2019-10-24 23:58 | Emergency (ER) | payer OTHER ==
[2019-10-25] MEDS ORDERED: NS 0.9% 1000 ML** 1,000 ML IV ONE (00:08)
[2019-10-25] MEDS ORDERED: Famotidine IV* 10 MG/ML 2 ML (20 mg) IV SLOW PU ONE (00:08)
[2019-10-25] MEDS ORDERED: diPHENhydraMINE IV* 50 MG/ML 1 ml VIAL (BENADRYL) IV ONE (00:08)
[2019-10-25] MEDS ORDERED: methylPREDNISolone 125 MG* 2 ML VIAL IV ONE (00:08)
--- NOTE | 2019-10-25 00:09 | ED ---
Nausea/Vomiting/Diarrhea HPI - HPI Summary HPI Summary: Patient complains of sudden onset swelling to left eye, sensation of throat swelling, pruritic rash all over and vomiting starting at 10 PM today. Unknown trigger for symptoms. Denies prior history of same. Denies new lotions, foods , supplements, meds, beverages, soaps or detergents. Patient took 25 mg Benadryl at home, and rash has subsequently resolved. Denies fever, cough, sore throat, CP, SOB, abdominal pain, change in urine, change in BM. Medical history is DM. - History of Current Complaint Chief Complaint: EDAllergicReaction Stated Complaint: ALLERGIC REACTION PER PT Time Seen by Provider: 10/25/19 00:07 Hx Obtained From: Patient, Family/Couture Dressmaker Onset/Duration: Sudden Onset, Lasting Hours Severity Currently: None Pain Intensity: 0 Pain Scale Used: 0-10 Numeric Alleviating Factor(s): OTC Analgesics Nausea/Vomiting Presence: Nauseated, Vomiting Vomiting Characteristics: Nonbilious - Allergies/Home Medications Allergies/Adverse Reactions: Allergies Allergy/AdvReac Type Severity Reaction Status Date / Time naproxen AdvReac Severe Vomiting Verified 10/25/19 00:01 Home Medications: Home Medications Ibuprofen 800 mg PO Q8HR PRN 10/25/19 [History Confirmed 10/25/19] PMH/Surg Hx/FS Hx/Imm Hx Endocrine/Hematology History: Reports: Hx Diabetes - PRE DIABETIC ON MEDS Denies: Hx Bone Marrow Disease, Hx Sickle Cell Disease, Hx Thyroid Disease, Hx Anemia Cardiovascular History: Denies: Hx Hypertension, Hx Pacemaker/ICD, Hx Peripheral Vascular Disease, Hx Rheumatic Fever, Hx Valvular Heart Disease, Other Cardiovascular Problems/ Disorders Respiratory History: Denies: Hx Asthma, Hx Chronic Obstructive Pulmonary Disease (COPD), Hx Pulmonary Edema, Hx Pulmonary Embolism, Other Respiratory Problems/Disorders GI History: Reports: Hx Irritable Bowel, Other GI Disorders - HX OF HEMORRHOID BAND Denies: Hx Ulcer History: Denies: Hx Kidney Infection, Hx Kidney Stones, Hx Renal Disease, Other Problems/Disorders Musculoskeletal History: Reports: Other Musculoskeletal History - SPONDYLOSIS WITH MYELOPATHY, CERVICAL REGION Denies: Hx Scoliosis Sensory History: Denies: Hx Cataracts, Hx Contacts or Glasses, Hx Glaucoma, Hx Hearing Aid Opthamlomology History: Denies: Hx Cataracts, Hx Contacts or Glasses, Hx Glaucoma Neurological History: Reports: Hx Headaches, Hx Migraine, Other Neuro Impairments/Disorders - SPONDYLOSIS WITH MYELOPATHY, CERVICAL REGION Psychiatric History: Denies: Hx Anxiety, Hx Attention Deficit Hyperactivity Disorder, Hx Eating Disorder, Hx Depression, Hx Panic Disorder, Hx Post Traumatic Stress Disorder, Hx Inpatient Treatment, Hx Community Mental Health Tx, Hx Schizophrenia, Hx Bipolar Disorder, Hx Suicide Attempt, Hx of Violent Episodes Against Others, Hx Substance Abuse, Other Psychiatric Issues/Disorders - Cancer History Hx Chemotherapy: No - Surgical History Surgery Procedure, Year, and Place: hemorrhoids banded- 02/04/2018 Hx Anesthesia Reactions: No Infectious Disease History: No Infectious Disease History: Denies: Hx Clostridium Difficile, Hx Hepatitis, Hx Human Immunodeficiency Virus (HIV), Hx of Known/Suspected MRSA, Hx Shingles, Hx Tuberculosis, Hx Known/ Suspected VRE, Hx Known/Suspected VRSA, History Other Infectious Disease, Traveled Outside the [place] in Last 30 Days - Family History Known Family History: Positive: Cardiac Disease, Hypertension, Diabetes - Social History Alcohol Use: Occasionally Alcohol Amount: 2 GLASSES OF WINE/DAY Hx Substance Use: Yes Substance Use Type: Reports: Marijuana Substance Use Comment - Amount & Last Used: daily Hx Tobacco Use: Yes Smoking Status (MU): Former Smoker Type: Cigarettes Amount Used/How Often: quit 06/2014 Length of Time of Smoking/Using Tobacco: 20 years Have You Smoked in the Last Year: Yes Review of Systems Constitutional: Negative Eyes: Negative Positive: Sore Throat Cardiovascular: Negative Respiratory: Negative Positive: Vomiting, Nausea Genitourinary: Negative Musculoskeletal: Negative Positive: Rash Neurological: Negative Psychological: Normal All Other Systems Reviewed And Are Negative: Yes Physical Exam - Summary Physical Exam Summary: No rash noted. Swelling to left periorbital area and lips. ENT exam otherwise unremarkable. Lung sounds clear to auscultation bilaterally. Patient in no apparent respiratory distress. Active vomiting here in the ED. Triage Information Reviewed: Yes Vital Signs On Initial Exam: Initial Vitals Temp Pulse Resp BP Pulse Ox 97.8 F 72 15 153/102 100 10/24/19 23:59 10/24/19 23:59 10/24/19 23:59 10/24/19 23:59 10/24/19 23:59 Vital Signs Reviewed: Yes Appearance: Positive: Well-Appearing Head/Face: Positive: Normal Head/Face Inspection Eyes: Positive: Normal ENT: Positive: Normal ENT inspection Neck: Positive: Supple Respiratory/Lung Sounds: Positive: Clear to Auscultation Cardiovascular: Positive: Normal Abdomen Description: Positive: Nontender Musculoskeletal: Positive: Normal Neurological: Positive: Normal Psychiatric: Positive: Normal AVPU Assessment: Alert - [place] Coma Scale Best Eye Response: 4 - Spontaneous Best Motor Response: 6 - Obeys Commands Best Verbal Response: 5 - Oriented Coma Scale Total: 15 Procedures - Sedation Patient Received Moderate/Deep Sedation with Procedure: No Diagnostics - Vital Signs Vital Signs Temp Pulse Resp BP Pulse Ox 10/24/19 23:59 97.8 F 72 15 153/102 100 - Laboratory Result Diagrams: 10/25/19 01:10 Lab Statement: Any lab studies that have been ordered have been reviewed, and results considered in the medical decision making process. Naus/Vom/Diarrhea Course/Dx - Course Course Of Treatment: Patient complains of sudden onset swelling to left eye, sensation of throat swelling, pruritic rash all over and vomiting starting at 10 PM today. Unknown trigger for symptoms. Denies prior history of same. Denies new lotions, foods, supplements, meds, beverages, soaps or detergents. Patient took 25 mg Benadryl at home, and rash has subsequently resolved. Denies fever, cough, sore throat, CP, SOB, abdominal pain, change in urine, change in BM. Medical history is DM. Vital signs within normal limits. Symptoms resolved with 50 mg Benadryl IV, Solu-Medrol 125 mg IV and Pepcid 40 mg IV. - Differential Dx/Diagnosis Provider Diagnosis: Allergic reaction Condition At Discharge: Stable Discharge ED - Sign-Out/Discharge Documenting (check all that apply): Patient Departure - Discharge Plan Condition: Stable Disposition: HOME Patient Education Materials: Urticaria (ED), General Allergic Reaction (ED) Forms: *Work Release Referrals: No Primary Care Phys,NOPCP [Primary Care Provider] - Additional Instructions: Take Benadryl 50 mg every 4 hours if needed for reaction. Return to the ED for any new or worsening symptoms. - Billing Disposition and Condition Condition: STABLE Disposition: Home
--- OUTSIDE RECORDS SUMMARY | 2019-10-25 00:27 | XMS REPORT | Continuity of Care Document ---
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 Problems Active Problems Provider Date Diarrhea Roberto [...] Recreational Drug Use Marijuana Smoking Status Reviewed: 08/09/19 Patient is a former QUIT 1999 smoker Allergies, Adverse Reactions, Alerts Description No Known Drug Allergies Medications Active Medications SIG Qnty Indications Ordering Date Provider Nitroglycerin 0.125% apply 3-4 times 90Grams K64.1 Joseph Elias, 2018 Ointment daily pea sized MD 0.125 Ointment amount using finger cot inside rectum Colace 1 by mouth daily 60caps K64.2 Roberto Silverio, 06/21/2019 100mg Capsules and can take MD twice a day as needed Proctofoam HC apply to 20gm Roberto Silverio, 06/01/2019 1-1% Foam affected area twice a day Excedrin Extra 1 tab bid prn Roberto Silverio, 01/15/2018 Strength Per PT [id number] Tablets Preparation H proctoA/D prn Unknown 0.25-88.44% Suppository Ibuprofen 200 4 po 4 x a day Unknown 200mg per patient Tablets History Medications Anusol-HC one per rectum 24units Roberto Silverio, 06/01/2019 - 25mg each night 06/16/2019 Suppository Nitroglycerin 0.125% 1 unit apply to 30gm K60.2 Roberto Silverio, 2018 - Ointment affected area 08/09/2019 0.125 Ointment three times a day as needed Hydrocortisone Acetate every night 24units K60.2 Roberto Silverio, 2018 - 06/01/2019 25mg Suppository Immunizations Description No Information Available Vital Signs Date Vital Result Comment 08/31/2019 10:59am BP Systolic Sitting Left Arm 134 mmHg BP Diastolic Sitting Left Arm 90 mmHg Heart Rate 98 /min Respiratory Rate 16 /min Height 72 inches 6'0" Weight 198.00 lb Pain Level 0 BMI (Body Mass Index) 26.9 kg/m2 BSA (Body Surface Area) 2.12 m2 [place] body weight in kilograms 81 kg 08/09/2019 10:46am BP Systolic Sitting Left Arm 121 mmHg BP Diastolic Sitting Left Arm 78 mmHg Body Temperature 96.9 F Heart Rate 59 /min Respiratory Rate 16 /min Height 72 inches 6'0" Weight 192.38 lb Pain Level 0 BMI (Body Mass Index) 26.1 kg/m2 BSA (Body Surface Area) 2.10 m2 [place] body weight in kilograms 81 kg O2 % BldC Oximetry 100 % Ra Results Description No Information Available Procedures Date Code Description Status 08/09/2019 15295 Hemorrhoidectomy, single ligature Completed 07/12/2019 92483 Hemorrhoidectomy, single ligature Completed 06/21/2019 27742 Hemorrhoidectomy, single ligature Completed 05/31/2019 45289 Hemorrhoidectomy, single ligature Completed 02/04/2018 55041907 Colonoscopy Completed 08/25/2012 09361918 Colonoscopy Completed Medical Devices Description No Information Available Encounters Type Date Location Provider Dx Diagnosis Office Visit 08/09/2019 GI Joseph Elias MD K64.1 Second degree 10:30a hemorrhoids K60.2 Anal fissure, unspecified Office Visit 07/12/2019 8:45a GI Roberto Silverio MD K64.1 Second degree hemorrhoids Office Visit 06/21/2019 9:00a Roberto Candelario MD K64.2 Third degree hemorrhoids Office Visit 05/31/2019 10:30a Roberto Candelario MD K64.2 Third degree hemorrhoids K60.2 Anal fissure, unspecified K59.00 Constipation, unspecified Assessments Date Code Description Provider 08/31/2019 K64.2 Third degree hemorrhoids Joseph Elias MD 08/09/2019 K64.1 Second degree hemorrhoids Joseph Elias MD 08/09/2019 K60.2 Anal fissure, unspecified Joseph Elias MD 07/12/2019 K64.1 Second degree hemorrhoids Roberto Silverio MD 06/21/2019 K64.2 Third degree hemorrhoids Roberto Silverio MD 05/31/2019 K64.2 Third degree hemorrhoids Roberto Silverio MD 05/31/2019 K60.2 Anal fissure, unspecified Roberto Silverio MD 05/31/2019 K59.00 Constipation, unspecified Roberto Silverio MD Plan of Treatment 08/31/2019 - Joseph Elias MDK64.2 Third degree hemorrhoidsComments:Anoscopy performed first;FOBT testing done: negativeBanding performed in the left lateral position complicationsAdvised patient continue with soluble fiber and hemorrhoid creamFollow up in 2-3 weeksDiscussed referral to colorectal surgery if no improvement despite multiple banding sessions Functional Status Description No Information Available Mental Status Description No Information Available Referrals Description No Information Available
--- OUTSIDE RECORDS SUMMARY | 2019-10-25 00:27 | XMS REPORT | Continuity of Care Document ---
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 Problems Active Problems Provider Date Diarrhea Roberto [...] Recreational Drug Use Marijuana Smoking Status Reviewed: 10/05/19 Patient is a former QUIT 1999 smoker Allergies, Adverse Reactions, Alerts Description No Known Drug Allergies Medications Active Medications SIG Qnty Indications Ordering Date Provider Nitroglycerin 0.125% apply 3-4 times 90Grams K64.1 Joseph Elias, 2018 Ointment daily pea keira AGUILAR 0.125 Ointment amount using finger cot inside rectum Ibuprofen 200 4 po 4 x a day Unknown 200mg Tablets per patient Metformin HCL ER Takes 2 Tablets Aura Granda, 500mg By Mouth Daily PA Tablets ER 24HR Cyclobenzaprine HCL 1 by mouth three Unknown 10mg times a day as Tablets needed muscle spasms(Per PT Take 1 Tablet Daily) Lactaid Fast Act Takes 3 Tablet Unknown Tablets By Mouth Prior To Dairy Products History Medications Colace 1 by mouth 60caps K64.2 Roberto Silverio, 06/21/2019 - 100mg Capsules daily and can 10/05/2019 take twice a day as needed Anusol-HC one per rectum 24units Robreto Silverio 06/01/2019 - 25mg each night 06/16/2019 Suppository Proctofoam HC apply to 20gm Roberto Silverio 06/01/2019 - 1-1% Foam affected area 10/05/2019 twice a day Nitroglycerin 0.125% 1 unit apply to 30gm K60.2 Roberto Silverio 2018 - Ointment affected area 08/09/2019 0.125 Ointment three times a day as needed Hydrocortisone Acetate every night 24units K60.2 Roberto Silverio 2018 - 06/01/2019 25mg Suppository Immunizations Description No Information Available Vital Signs Date Vital Result Comment 10/05/2019 4:18pm BP Systolic 126 mmHg BP Diastolic 77 mmHg Body Temperature 98.4 F Heart Rate 68 /min Respiratory Rate 16 /min Height 72 inches 6'0" Weight 203.00 lb BMI (Body Mass Index) 27.5 kg/m2 BSA (Body Surface Area) 2.14 m2 [place] body weight in kilograms 81 kg O2 % BldC Oximetry 98 % 09/23/2019 4:21pm BP Systolic 106 mmHg BP Diastolic 57 mmHg Body Temperature 98.4 F Heart Rate 75 /min Respiratory Rate 16 /min Height 72 inches 6'0" Weight 196.00 lb Pain Level 0 BMI (Body Mass Index) 26.6 kg/m2 BSA (Body Surface Area) 2.11 m2 [place] body weight in kilograms 81 kg O2 % BldC Oximetry 98 % Results Description No Information Available Procedures Date Code Description Status 09/23/2019 47116 Hemorrhoidectomy, single ligature Completed 08/31/2019 40153 Hemorrhoidectomy, single ligature Completed 08/09/2019 50358 Hemorrhoidectomy, single ligature Completed 07/12/2019 71715 Hemorrhoidectomy, single ligature Completed 06/21/2019 48335 Hemorrhoidectomy, single ligature Completed 05/31/2019 12694 Hemorrhoidectomy, single ligature Completed 02/04/2018 [id number] Colonoscopy Completed 08/25/2012 30462894 Colonoscopy Completed Medical Devices Description No Information Available Encounters Type Date Location Provider Dx Diagnosis Office Visit 09/23/2019 Joseph Nicole MD K64.8 Other hemorrhoids 4:30p Office Visit 08/31/2019 Joseph Nicole MD K64.2 Third degree 11:15a hemorrhoids Office Visit 08/09/2019 Joseph Nicole MD K64.1 Second degree 10:30a hemorrhoids K60.2 Anal fissure, unspecified Office Visit 07/12/2019 8:45a GI Roberto Silverio MD K64.1 Second degree hemorrhoids Office Visit 06/21/2019 9:00a GI Roberto Silverio MD K64.2 Third degree hemorrhoids Office Visit 05/31/2019 10:30a GI Roberto Silverio MD K64.2 Third degree hemorrhoids K60.2 Anal fissure, unspecified K59.00 Constipation, unspecified Assessments Date Code Description Provider 10/05/2019 K64.8 Other hemorrhoids Joseph Elias MD 10/05/2019 K60.2 Anal fissure, unspecified Joseph Elias MD 10/05/2019 K62.5 Hemorrhage of anus and rectum Joseph Elias MD 09/23/2019 K64.8 Other hemorrhoids Joseph Elias MD 08/31/2019 K64.2 Third degree hemorrhoids Joseph Elias [...] unspecified Roberto Silverio MD Plan of Treatment 10/05/2019 - Joseph Elias MDK64.8 Other hemorrhoidsComments:Patient is currently asymptomaticRecommended preparation H as neededContinue with OkzdxzvuhH13.2 Anal fissure, unspecifiedComments:Patient currently yjtiutdksyonO85.5 Hemorrhage of anus and rectumComments:Patient currently asymptomatic Functional Status Description No Information Available Mental Status Description No Information Available Referrals Description No Information Available
--- OUTSIDE RECORDS SUMMARY | 2019-10-25 00:27 | XMS REPORT | Continuity of Care Document ---
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 Problems Active Problems Provider Date Diarrhea Roberto [...] Recreational Drug Use Marijuana Smoking Status Reviewed: 09/23/19 Patient is a former QUIT 1999 smoker [...] prn Roberto Silverio, 01/15/2018 Strength Per PT [phone] Tablets Preparation H proctoA/D prn Unknown 0.25-88.44% Suppository Ibuprofen 200 4 po 4 x a day Unknown 200mg per patient Tablets History Medications Anusol-HC one per rectum 24units Roberto Silverio 06/01/2019 - 25mg each night 06/16/2019 Suppository Nitroglycerin 0.125% 1 unit apply to 30gm K60.2 Roberto Silverio 2018 - Ointment affected area 08/09/2019 0.125 Ointment three times a day as needed Hydrocortisone Acetate every night 24units K60.2 Roberto Silverio, 2018 - 06/01/2019 25mg Suppository Immunizations Description No Information Available Vital Signs Date Vital Result Comment 09/23/2019 4:21pm BP Systolic 106 mmHg BP Diastolic 57 mmHg Body Temperature 98.4 F Heart Rate 75 /min Respiratory Rate 16 /min Height 72 inches 6'0" Weight 196.00 lb Pain Level 0 BMI (Body Mass Index) 26.6 kg/m2 BSA (Body Surface Area) 2.11 m2 [place] body weight in kilograms 81 kg O2 % BldC Oximetry 98 % 08/31/2019 10:59am BP Systolic Sitting Left Arm 134 mmHg BP Diastolic Sitting Left Arm 90 mmHg Heart Rate 98 /min Respiratory Rate 16 /min Height 72 inches 6'0" Weight 198.00 lb Pain Level 0 BMI (Body Mass Index) 26.9 kg/m2 BSA (Body Surface Area) 2.12 m2 [place] body weight in kilograms 81 kg Results Description No Information Available Procedures Date Code Description Status 08/31/2019 41099 Hemorrhoidectomy, single ligature Completed 08/09/2019 04496 Hemorrhoidectomy, single ligature Completed 07/12/2019 90773 Hemorrhoidectomy, single ligature Completed 06/21/2019 60150 Hemorrhoidectomy, single ligature Completed 05/31/2019 66176 Hemorrhoidectomy, single ligature Completed 02/04/2018 [id number] Colonoscopy Completed 08/25/2012 [id number] Colonoscopy Completed Medical Devices Description No Information Available Encounters Type Date Location Provider Dx Diagnosis Office Visit 08/31/2019 Joseph Nicole MD K64.2 [...] Constipation, unspecified Assessments Date Code Description Provider 09/23/2019 K64.8 Other hemorrhoids Joseph Elias MD [...] unspecified Roberto Silverio MD Plan of Treatment 09/23/2019 - Joseph Elias MDK64.8 Other hemorrhoidsComments:FOBT negativeAnoscopy performedReport column in the right anterior position banded without complicationRecommended patient to continue with soluble fiber to keep his stool softFollow up in 2-3 weeksFollow up:Follow up in 2-3 weeks Functional Status Description No Information Available Mental Status Description No Information Available Referrals Description No Information Available
[2019-10-25] MEDS ORDERED: Ondansetron ODT TAB* 4 MG PO ONE (01:31)
[2019-10-25 01:37] LABS: BUN/Creatinine Ratio 18.1 (8-20); Calcium 8.7 mg/dL (8.6-10.3); EGFR African American 92.8 (>60); EGFR Non-African American 76.7 (>60); Potassium 3.7 mmol/L (3.5-5.0)
[2019-10-25 02:21] VITALS: BP 141/91
== END 2019-10-25 02:20 | disposition home or self-care (01) ==
LOC: ED 23:58
DX: T78.40XA Allergy, unspecified, initial encounter (principal); R21 Rash and other nonspecific skin eruption; J02.9 Acute pharyngitis, unspecified; Z79.84 Long term (current) use of oral hypoglycemic drugs; R11.2 Nausea with vomiting, unspecified; R73.03 Prediabetes; Z87.891 Personal history of nicotine dependence; X58.XXXA Exposure to other specified factors, initial encounter; Z88.6 Allergy status to analgesic agent
CPT/HCPCS: 36415; 80048; 99283; A9270-GY; J1200; J2930

== ENCOUNTER 2020-12-08 06:00 | Observation (INO) ==
[~2020-12-08 06:00] MED LIST changes: +Buffered Lidocaine 1% SYRIN 1 ml INTRADERM ONE; -Buffered Lidocaine 1% SYRIN* 1 ML/SYRINGE INTRADERM ONE; +Lactated Ringers 1000 ml BAG 1,000 ML IV SCH
[2020-12-08] MEDS ORDERED: ceFAZolin 2 GM PREMIX 2 GM/50 ML BAG ONE (06:31)
[2020-12-08] MEDS ORDERED: Lidocaine 2% PF 5 ML VIAL ONE (06:50)
[2020-12-08] MEDS ORDERED: Propofol 10 MG/ML 20 ML BTL ONE ×3 (06:52→08:25)
[2020-12-08] MEDS ORDERED: Dexamethasone IV 4 MG/ML VIAL 1 ml VIAL ONE (06:52)
[2020-12-08] MEDS ORDERED: Ondansetron 4 mg VIAL 2 MG/ML 2 ml VIAL ONE (06:52)
[2020-12-08] MEDS ORDERED: fentaNYL 250 mcg/5 ml 50 MCG/ML 5 ml VIAL (250 MCG) ONE (07:00)
[2020-12-08] MEDS ORDERED: Midazolam 5 mg/5 ml VIAL 1 mg/ml 5 ml VIAL (5 mg) ONE (07:00)
[2020-12-08] MEDS ORDERED: Rocuronium 50 mg VIAL 10 mg/ml 5 ml VIAL (50 mg) ONE ×2 (07:02→09:51)
[2020-12-08] MEDS ORDERED: Bupivacaine 0.25% EPI 200,000 30 ML SDV ONE (07:08)
[2020-12-08] MEDS ORDERED: Bacitracin INJECTION 50,000 UNITS ONE (07:08)
[2020-12-08] MEDS ORDERED: Glycopyrrolate IV 0.2 MG/ML 1 ML VIAL ONE (07:52)
[2020-12-08] MEDS ORDERED: HYDROmorphone 1 MG/1 ML SYRINGE ONE (09:17)
[2020-12-08] MEDS ORDERED: fentaNYL 100 mcg/2 ml 50 MCG/ML VIAL ONE (09:17)
[2020-12-08] MEDS ORDERED: HYDROcodone/ACETAMIN 5/325 mg TAB PO PRN (10:58)
[2020-12-08] MEDS ORDERED: Ondansetron 4 mg VIAL 2 MG/ML 2 ml VIAL IV PRN (10:58)
[2020-12-08] MEDS ORDERED: Naloxone 0.4 mg VIAL 0.4 mg/ml 1 ml VIAL IV PRN (11:07)
[2020-12-08] MEDS ORDERED: fentaNYL 100 mcg/2 ml 50 MCG/ML VIAL IV PRN (11:07)
[2020-12-08] MEDS ORDERED: diPHENhydraMINE IV 50 MG/ML 1 ml VIAL (BENADRYL) IV PRN (11:07)
[2020-12-08] MEDS: HYDROcodone/ACETAMIN 5/325 mg TAB PO PRN ×2 (13:05→17:06)
[2020-12-08 13:48] VITALS: BP 138/89
== END 2020-12-08 17:40 | disposition home or self-care (01) ==
LOC: OR 06:00 → SSU 06:00
PROVIDERS: ADMIT Neurological Surgery; ATTEND Neurological Surgery